=== PATIENT | female | born 1955 | race Caucasian/White ===

== ENCOUNTER 2024-09-13 12:51 | Day surgery (SDC) | payer MEDICARE ==
[2024-09-11 09:36] VITALS: BMI 41.1
[2024-09-13] MEDS: IV FLUID CONTINUATION 1,000 ML IV ONE (12:27)
[~2024-09-13 12:51] MED LIST: TRANEXAMIC 1,000 MG/100ML-NACL 1,000 MG in SALINE 1 100ML.BAG IV PRN; TRANEXAMIC 1,000 MG/100ML-NACL 1,000 MG in SALINE 1 100ML.BAG IVPB PRN
[2024-09-13] MEDS: oxyCODONE ER 10 MG TAB.ER.12H PO PRN (13:20)
[2024-09-13] MEDS: ACETAMINOPHEN TAB 500 MG TAB PO PRN (13:21)
[2024-09-13] MEDS: DOCUSATE 100 MG CAP PO PRN (13:21)
[2024-09-13] MEDS: LACTATED RINGERS 1,000 ML IV SCH (13:24)
[2024-09-13] MEDS: FAMOTIDINE 20 MG/2 ML VIAL IVP PRN (13:28)
[2024-09-13] MEDS: DEXAMETHASONE SOD PHOSPHATE 10 MG/ML 1 ML VIAL IV PRN (13:28)
[2024-09-13] MEDS: KETOROLAC 15 MG/ML 1 ML VIAL IVP PRN (13:28)
[2024-09-13] MEDS: ONDANSETRON 4 MG/2 ML VIAL IVP PRN (13:29)
[2024-09-13] MEDS: MIDAZOLAM 2 MG/2 ML VIAL IV ONE (14:10)
[2024-09-13] MEDS: fentaNYL (PF) 50 MCG/ML 2 ML AMP IVP PRN (14:13)
[2024-09-13] MEDS ORDERED: GLYCOPYRROLATE 0.2 MG/ML 2 ML VIAL ONE (14:25)
[2024-09-13] MEDS ORDERED: ROCURONIUM 10 MG/ML (5 ML VIAL) IV ONE (14:25)
[2024-09-13] MEDS ORDERED: LIDOCAINE 1% INJ 10MG/ML (20 ML MDV) ONE (14:25)
[2024-09-13] MEDS ORDERED: PROPOFOL 10 MG/ML 20 ML VIAL IV ONE (14:25)
[2024-09-13] MEDS ORDERED: fentaNYL (PF) 50 MCG/ML 2 ML AMP ONE (14:25)
[2024-09-13] MEDS ORDERED: ROPIVACAINE 5 MG/ML 30 ML VIAL ONE (14:25)
[2024-09-13] MEDS ORDERED: SUCCINYLCHOLINE CHLORIDE 200 MG/10 ML VIAL IV ONE (14:25)
[2024-09-13] MEDS ORDERED: NEOSTIGMINE 1 MG/ML 10 ML VIAL ONE (14:25)
[2024-09-13] MEDS ORDERED: TRANEXAMIC 1,000 MG/100ML-NACL PREMIX BAG ONE (14:25)
[2024-09-13] MEDS: ROPIVACAINE/EPI/CLONIDINE/KET 50 ML SYRINGE MISCELLANE PRN (15:11)
[2024-09-13] MEDS: VANCOMYCIN 1,000 MG VIAL MISCELLANE ONE (15:14)
--- NOTE | 2024-09-13 16:15 | P.ANPRN ---
Procedure Note - Anesthesia - Nerve Block Performed Right Adductor Canal Single Time Out Performed: Yes (1403) Date of Procedure: 09/13/24 Procedure Start Time: 14:04 Procedure Stop Time: 14:06 Location of Patient: PreOp Indication: Acute Post-Operative Pain, Requested by Surgeon Specifically requested for management of pain by DrSwapnil: Levy Diaz Sedation Type: Sedate with meaningful contact maintained Preparation: Sterile Prep Position: Supine Catheter: None Needle Types: Pajunk Needle Gauge: 21 Ultrasound used to visualize needle placement: Yes Ultrasound used to observe medication spread: Yes Injectate: 0.5% Ropivacaine (see comment for volume) (20cc) Blood Aspirated: No Pain Paresthesia on Injection Noted: No Resistance on Injection: Normal Image Stored and Saved: Yes Events: Uneventful and Well Tolerated
--- NOTE | 2024-09-13 16:15 | P.ANPRN ---
Procedure Note - Anesthesia - Nerve Block Performed Left iPack Single Time Out Performed: Yes (9303) Date of Procedure: 09/13/24 Procedure Start Time: 14:07 Procedure Stop Time: 14:09 Indication: Acute Post-Operative Pain, Requested by Surgeon Specifically requested for management of pain by DrSwapnil: Levy Diaz Sedation Type: Sedate with meaningful contact maintained Preparation: Sterile Prep Position: Supine Catheter: None Needle Types: Pajunk Needle Gauge: 21 Ultrasound used to visualize needle placement: Yes Ultrasound used to observe medication spread: Yes Injectate: 0.5% Ropivacaine (see comment for volume) (20cc) Blood Aspirated: No Pain Paresthesia on Injection Noted: No Resistance on Injection: Normal Image Stored and Saved: Yes Events: Uneventful and Well Tolerated
--- NOTE | 2024-09-13 16:23 | P.OP ---
Date of Procedure: 09/13/24 Preoperative Diagnosis: 1. severe left knee osteoarthritis 2. BMI 41.8 3. Chronic lower extremity swelling and mild chronic cellulitis Postoperative Diagnosis: Same Procedure(s) Performed: 1. Left total knee arthroplasty 2. Computer assisted musculoskeletal navigation using CT/MRI images Implants: 1. [place] [employer] CR Femur Size #3 2. [employer] [place] Tibial Base Size #2 3. [place] [employer] CS poly Size #2, 9-mm 4. [employer] all poly patella, Size #29 Anesthesia: MANASAA, regional Surgeon: Levy Diaz Aircraft Maintenance Director #1: Sheldon Frausto Estimated Blood Loss (ml): 100 IV fluids (ml): 800 Pathology: none sent Condition: stable Disposition: PACU Indications for Procedure: I met with the patient preoperatively in the office setting and discussed treatment of their symptomatic knee arthritis. They failed a long course of nonsurgical treatment and elected to proceed with an elective total knee replacement. I discussed the potential risks and complications at length and gave them ample time to ask questions. Risks discussed included: risks from anesthesia, superficial site surgical infection, acute and/or chronic periprosthetic joint infection, delayed wound healing, drainage, wound necrosis, instability, stiffness, stiffness requiring manipulation and/or revision surgery, damage to local blood vessels or nerves, aseptic loosening of the implants, extensor mechanism issues including disruption, patellar maltracking, avascular necrosis etc., continued or worsened knee pain, generalized dissatisfaction with surgical outcome, need for revision surgery, an inability to regain preinjury level of function, DVT, PE, other medical complications, and possibly loss of life or limb. The patient voiced their understanding that while these are the most common complications other less common complications are possible. They provided both their verbal and written consent to go forward with surgery. Description of Procedure: The patient was identified in preoperative holding and the correct operative extremity was verified and marked with a marker. I reviewed the consent form with the patient at length. All of their questions were answered. The patient was given a block by anesthesia. They were then brought back to the operating room. They were transferred onto the operating room table where a general anesthetic, preoperative antibiotics, and tranexamic acid were administered by anesthesia. A tourniquet was applied to the proximal aspect of the operative extremity. The contralateral extremity was padded under the heel and secured to the operating room table with a nonsterile blue towel and tape. The ipsilateral arm was carefully draped across the patient's chest and secured with a pillow and foam. A post was applied over the lateral aspect of the ipsilateral thigh and a bolster was placed under the ipsilateral foot. I verified that the operative extremity was stable and the knee was flexed to 90. The operative extremity was then placed in a leg suárez, nonsterile drapes were applied, and the extremity was prepped and draped sterilely in the standard sterile fashion. Prior to starting surgery timeout was performed identifying the correct patient, operative extremity, and procedure. The leg was then elevated, exsanguinated with an Esmarch bandage, and the tourniquet was inflated. An anterior midline incision was made sharply with a scalpel. Once I had dissected deep to the superficial fascial layer medial and lateral flaps were elevated. A medial parapatellar arthrotomy was created. Upon opening the knee joint there were diffuse arthritic changes in all 3 compartments. The anterior horn of the medial meniscus were sharply released and a medial release was performed around the posterior medial corner of the knee to facilitate retractor placement. The fat pad was excised with electrocautery. The patella was found to be severely arthritic and a provisional cut was made with a sagittal saw to facilitate mobilization of the extensor mechanism during the procedure. Remnants of the ACL and PCL were then excised from the notch. 4 mm pins were then placed within the incision in the medial distal femur and proximal tibia. Arrays were applied to the pins and I verified they were completely tightened. The knee was then registered with the Inmoo robot and manipulations in implant p osition were made to balance the knee and opitmize implant position. Using the Eb robotic saw all cuts were made in accordance with our plan. After all bony fragments had been removed the cuts were verified with the planar probe. The tibia was then subluxed forward and sized. The knee was brought into flexion and a lamina freight car cleaner was placed to allow removal of the meniscal remnants both medially and laterally as well as posterior osteophytes. Local anesthetic was then infiltrated around the joint capsule. Trial implants were then placed within the knee. Range of motion and collateral ligament tension was then evaluated. Adjustments in implant size and position were then made accordingly. Once the knee was felt to be appropriately balanced the Eb pins were removed. The patella was then recut, sized, and punched. A trial patellar button was then placed. With the trial components in place, the patella tracked midline. The femur was then drilled and the trial component removed. The trial tibial component was then appropriately rotated, pinned, and prepared for the keel. All trial components were then removed from the knee. The knee was thoroughly irrigated with pulsatile lavage. Cement with antibiotics was prepared via vacuum mixing in a bowl on the back table. I then hand pressurized cement into the femur and tibia and placed the implants beginning with the tibial base tray and poly liner, femoral component, and finally the patellar button. All extruded cement was removed including from the pin sites. Once the cement had hardened the knee was evaluated one final time with the final polyethylene liner in place. The knee had full extension and flexion and felt stable to varus and valgus stress throughout the arc of motion. The tourniquet was released and with the tourniquet down the patella tracked midline. All bleeders were controlled with electrocautery. The knee was then soaked for 3 minutes with a dilute Betadine soak. The knee was thoroughly irrigated using 3 L of sterile saline and pulsatile lavage. 2 grams of vancomycin powder was placed in the wound. The extensor mechanism was then reapproximated using pop off Vicryl sutures followed by a running barbed suture. The knee was then closed in layers with a 0 strata fix for the deep fascial layer, 2-0 strata fix for the superficial subcutaneous layer and Monocryl and Steri-Strips for the skin. A sterile dressing was applied. I verified that all instrument, sponge, and sharp counts were correct. The patient was then transferred off the operating room table, extubated, and brought to recovery having tolerated the procedure well. Sheldon Frausto PA-C was required as a skilled workforce development assistant for patient positioning, draping, exposure, retraction, closure of wound and application of dressing PLAN: The patient can weight-bear as tolerated on the operative extremity. DVT prophylaxis with aspirin 81 mg twice a day based on preoperative risk stratification. Internal medicine for perioperative medical management. 2 doses of post-operative antibiotics. Physical therapy for gait training. Follow-up in the office in 2 weeks for wound check and x-rays of the knee including an AP and lateral.
[2024-09-13] MEDS ORDERED: MAGNESIUM HYDROXIDE 2,400 MG/30 ML CUP PO PRN (16:47)
[2024-09-13] MEDS ORDERED: HYDROmorphone 0.5 MG/0.5 ML SYRINGE IVP PRN ×2 (16:47)
[2024-09-13] MEDS ORDERED: ACETAMINOPHEN TAB 325 MG TAB PO PRN (16:47)
[2024-09-13] MEDS ORDERED: NA PHOS,M-B/NA PHOS,DI-BA 133 ML ENEMA RECTAL PRN (16:47)
[2024-09-13] MEDS ORDERED: hydrOXYzine pamoate 25 MG CAP PO PRN (16:47)
[2024-09-13] MEDS ORDERED: bisacodyL 10 MG SUPP RECTAL PRN (16:47)
[2024-09-13] MEDS ORDERED: HYDROcodone/APAP 10-325MG 1 EACH TAB PO PRN (16:47)
[2024-09-13] MEDS ORDERED: NALOXONE 0.4 MG/ML 1 ML VIAL IV PRN (16:47)
[2024-09-13] MEDS ORDERED: ONDANSETRON 4 MG/2 ML VIAL IVP PRN (16:47)
--- NOTE | 2024-09-13 18:04 | XR ---
EXAMINATION TYPE: XR knee limited LT DATE OF EXAM: 09/13/2024 5:21 PM COMPARISON: None CLINICAL INDICATION: Female, 69 years old with history of Evaluation for Postop abnormality and align ment; [facility] TECHNIQUE: XR knee limited LT 2 views submitted. FINDINGS: Status post total knee arthroplasty changes with hardware in appropriate alignment and in tact. No evidence of fracture. Subcutaneous lucencies and lucencies within the joint consistent with surgical changes. IMPRESSION: Status post total knee arthroplasty changes with hardware intact and appropriate alignment. No fractu res identified. [facility], , 09/13/2024 6:02 PM
[2024-09-13] MEDS: HYDROcodone/APAP 5-325MG 1 EACH TAB PO PRN (18:56)
[2024-09-13] MEDS: SODIUM CHLORIDE 0.9% 1,000 ML IV SCH (18:58)
--- NOTE | 2024-09-13 21:10 | P.CONS ---
History of Present Illness - Reason for Consult Consult date: 09/13/24 Medical management - History of Present Illness History of present illness; 69-year-old female with PMH of hypertension and osteoarthritis who presented for elective total left knee arthroplasty. Patient required surgery due to longstanding osteoarthritis of the left knee. Patient is now postop with no known surgical complications. Patient is sitting up in bed resting with no complaints of pain. Patient reports absence of fever, chills, weight loss, chest pain, palpitations, diaphoresis, dyspnea, cough, nausea, vomiting, constipation, diarrhea, abdominal pain, weakness, myalgia, dizziness, and dysuria. Internal medicine was consulted for medical management. Labs: None currently ordered Imaging: Left knee x-ray showed status post total knee arthroplasty changes with hardware intact and appropriate alignment. No fractures identified. REVIEW OF SYSTEMS: All systems reviewed, pertinent positives and negatives noted in HPI. All other symptoms are negative. PHYSICAL EXAMINATION: Vitals reviewed GENERAL: No acute distress. Well developed, well nourished. HEENT: Pupils are round and equally reacting to light. EOMI. No scleral icterus. Normocephalic, atraumatic. No pharyngeal erythema. No thyromegaly. CARDIOVASCULAR: S1 and S2 present. No murmurs, rubs, or gallops. PULMONARY: Chest is clear to auscultation, no wheezing, rhonchi, or crackles. ABDOMEN: Soft, nontender, nondistended, normoactive bowel sounds. No palpable organomegaly. MUSCULOSKELETAL: No apparent joint swelling and deformities. EXTREMITIES: No apparent cyanosis, clubbing, or pedal edema. NEUROLOGICAL: The patient is alert and oriented x3, Gross neurological examination did not reveal any focal deficits. 5/5 strength bilateral UE and LE. SKIN: No apparent rashes. Left knee surgical site appreciated with bandaging covering incision, no surrounding erythema nor discharge appreciated. Assessment and plan 69-year-old female with PMH of hypertension and osteoarthritis who presented for elective total left knee arthroplasty. Internal medicine consulted for postoperative medical management. Chronic Medical Conditions #Essential hypertension - Resume home Lisinopril 30 mg and hydrochlorathine 12.5 mg p.o. every morning # Mood disorder - Resume home amitriptyline 25 mg p.o. at bedtime #History of left leg spasm -Continue home tizanidine 4 mg p.o. at bedtime and pramipexole 1 mg p.o. at bedtime # Left total knee arthroplasty -Pain management and DVT prophylaxis per primary surgical team F: IV LR 20 mL/hr E: Replete as needed N: Regular diet DVT ppx: per primary surgical team Code status: Full code Patient is stable from medical stand point Follow up CBC and CMP in AM I have seen and evaluated the patient today. I Discussed the case with the resident and agree with the resident's findings I edited the assessment and plan as necessary as documented in the resident's note. Past Medical History Past Medical History: Hypertension, Osteoarthritis (OA) Additional Past Medical History / Comment(s): "Possible sleep apnea." Restless leg syndrome. "Might have had a stroke behind left eye." Poor vision rt eye. History of Any Multi-Drug Resistant Organisms: None Reported Past Surgical History: Appendectomy, Hysterectomy, Orthopedic Surgery Additional Past Surgical History / Comment(s): Meniscus removal lt knee, Tendon release lt wrist, Colonoscopy, bx lt buddhism area, Bone marrow donor. Past Anesthesia/Blood Transfusion Reactions: No Reported Reaction Additional Past Anesthesia/Blood Transfusion Reaction / Comm: No hx of blood transfusion to date. Smoking Status: Never smoker, Vaper - Past Family History Sister(s) Family Medical History: Cancer Additional Family Medical History / Comment(s): Leukemia Father Family Medical History: Cancer Additional Family Medical History / Comment(s): Colon cancer. Medications and Allergies Home Medications Medication Instructions Recorded Confirmed Type Amitriptyline HCl [Elavil] 25 mg PO HS 09/11/24 09/13/24 History Gabapentin 600 mg PO TID 09/11/24 09/11/24 History Hydrochlorathine(Unknown Dose) 12.5 mg PO QAM 09/11/24 09/13/24 History Magnesium(Unknown Dose) 1 dose PO HS 09/11/24 09/13/24 History Meloxicam [Mobic] 15 mg PO QAM 09/11/24 09/11/24 History Potassium(Unknown Dose) 1 dose PO QAM 09/11/24 History Pramipexole Di-HCl [Pramipexole 1 mg PO HS 09/11/24 09/13/24 History Dihydrochloride] Preservision(Unknown Dose) 1 cap PO BID 09/11/24 09/11/24 History lisinopriL [Zestril] 30 mg PO QAM 09/11/24 09/11/24 History tiZANidine [Zanaflex] 4 mg PO HS 09/11/24 09/13/24 History Aspirin 81 mg PO BID #60 tab 09/13/24 Rx HYDROcodone/APAP 5-325MG [[place] 5] 1 - 2 each PO Q6HR PRN #56 tab 09/13/24 Rx Omeprazole 20 mg PO DAILY #30 tab 09/13/24 Rx Ondansetron [Zofran] 4 mg PO Q6HR PRN #30 tab 09/13/24 Rx Sennosides-Docusate Sodium 1 tab PO BID PRN #60 tablet 09/13/24 Rx [Senokot-S] Allergies Allergy/AdvReac Type Severity Reaction Status Date / Time No Known Allergies Allergy Verified 09/13/24 13:03 Physical Exam Vitals: Vital Signs Temp Pulse Resp BP Pulse Ox 09/13/24 18:14 62 16 166/83 92 L 09/13/24 17:59 65 16 159/63 94 L 09/13/24 17:44 63 16 155/88 92 L 09/13/24 17:29 76 16 152/80 94 L 09/13/24 17:14 70 16 158/83 94 L 09/13/24 16:59 74 16 156/71 100 09/13/24 16:44 97 F L 100 16 160/79 97 09/13/24 14:14 57 L 16 135/58 98 09/13/24 13:13 97.6 F 74 20 186/86 99 Intake and Output 09/13/24 09/13/24 09/13/24 06:59 14:59 22:59 Intake Total 850 125 Output Total 100 Balance 850 25 Intake: IV 850 125 Output: Estimated Blood Loss 100 Other: Weight 110.4 kg
[2024-09-13] MEDS: ASPIRIN 81 MG PO SCH (22:03)
[2024-09-13] MEDS: SENNOSIDES-DOCUSATE SODIUM 1 EACH TAB PO SCH (22:03)
[2024-09-13] MEDS: GABAPENTIN 300 MG CAP PO SCH (22:03)
[2024-09-13] MEDS: HYDROmorphone 0.5 MG/0.5 ML SYRINGE IVP PRN (22:04)
[2024-09-14 07:32] LABS: Basophils % (A) 0 %; Eosinophils % (A) 0 %; HCT 34.8 % (34.0-46.0); Lymphocytes # (A) 1.4 k/uL (1.0-4.8); Lymphocytes % (A) 10 %; MCH 28.7 pg (25.0-35.0); MCHC 31.6 g/dL (31.0-37.0); MCV 90.8 fL (80.0-100.0); Monocytes # (A) 0.8 k/uL (0-1.0); Monocytes % (A) 5 %; Neutrophils # (A) 11.8 k/uL (1.3-7.7); Neutrophils % (A) 84 %; Platelet Count 205 k/uL (150-450); RBC 3.83 m/uL (3.80-5.40); RDW 14.5 % (11.5-15.5)
[2024-09-14 07:59] LABS: ALT 74 U/L (4-34); AST 56 U/L (14-36); African American GFR (CKD) 89 (>60 ml/min/1.73 sqM); Albumin 3.4 g/dL (3.5-5.0); Albumin/Globulin Ratio 1.5; Alkaline Phosphatase 154 U/L (38-126); Anion Gap 5 mmol/L; Blood Urea Nitrogen 28 mg/dL (7-17); Calcium 8.6 mg/dL (8.4-10.2); Carbon Dioxide 26 mmol/L (22-30); Chloride 104 mmol/L (98-107); Globulin 2.2 g/dL; Glucose 130 mg/dL (74-99); Non-African American GFR(CKD) 77 (>60 ml/min/1.73 sqM); Potassium 4.7 mmol/L (3.5-5.1); Sodium 135 mmol/L (137-145); Total Bilirubin 0.3 mg/dL (0.2-1.3); Total Protein 5.6 g/dL (6.3-8.2)
--- NOTE | 2024-09-14 08:36 | P.DS ---
Providers Date of admission: 09/13/2024 Attending physician: Levy Diaz Consults: 09/13/24 16:47 Consult Physician Routine Consulting Provider: Janee Kohler Consult Reason/Comments: Postop total knee arthroplasty medical management Do you want consulting provider notified?: Yes Primary care physician: Janee Kohler MD Hospital Course: The patient is a very pleasant 69-year-old female who underwent uncomplicated left total knee replacement yesterday. Following an uncomplicated surgery she was transferred to the orthopedic floor. She was transitioned from IV to oral pain medication. She was seen by internal medicine. I have evaluated the patient on postoperative day #1 and she was doing well. She had minimal pain in her knee. On exam the dressing was intact with no drainage or strike through. She had moderate swelling throughout her thigh and calf but both are soft and minimally tender. Femoral nerve function was intact. She was able to actively plantarflex and dorsiflex her ankle and her toes. She worked with physical therapy and did well. She was ultimately cleared for discharge home. Patient Condition at Discharge: Good Plan - Discharge Summary Discharge Rx Participant: No New Discharge Prescriptions: New HYDROcodone/APAP 5-325MG [[place] 5] 1 - 2 each PO Q6HR PRN #56 tab PRN Reason: Pain Ondansetron [Zofran] 4 mg PO Q6HR PRN #30 tab PRN Reason: Nausea Aspirin 81 mg PO BID #60 tab Omeprazole 20 mg PO DAILY #30 tab Sennosides-Docusate Sodium [Senokot-S] 1 tab PO BID PRN #60 tablet PRN Reason: Constipation No Action Magnesium(Unknown Dose) 1 dose PO HS Hydrochlorathine(Unknown Dose) 12.5 mg PO QAM tiZANidine [Zanaflex] 4 mg PO HS Potassium(Unknown Dose) 1 dose PO QAM lisinopriL [Zestril] 30 mg PO QAM Preservision(Unknown Dose) 1 cap PO BID Pramipexole Di-HCl [Pramipexole Dihydrochloride] 1 mg PO HS Meloxicam [Mobic] 15 mg PO QAM Gabapentin 600 mg PO TID Amitriptyline HCl [Elavil] 25 mg PO HS Discharge Medication List Amitriptyline HCl [Elavil] 25 mg PO HS 09/11/24 [History] Gabapentin 600 mg PO TID 09/11/24 [History] Hydrochlorathine(Unknown Dose) 12.5 mg PO QAM 09/11/24 [History] Magnesium(Unknown Dose) 1 dose PO HS 09/11/24 [History] Meloxicam [Mobic] 15 mg PO QAM 09/11/24 [History] Potassium(Unknown Dose) 1 dose PO QAM 09/11/24 [History] Pramipexole Di-HCl [Pramipexole Dihydrochloride] 1 mg PO HS 09/11/24 [History] Preservision(Unknown Dose) 1 cap PO BID 09/11/24 [History] lisinopriL [Zestril] 30 mg PO QAM 09/11/24 [History] tiZANidine [Zanaflex] 4 mg PO HS 09/11/24 [History] Aspirin 81 mg PO BID #60 tab 09/13/24 [Rx] HYDROcodone/APAP 5-325MG [[place] 5] 1 - 2 each PO Q6HR PRN #56 tab 09/13/24 [Rx] Omeprazole 20 mg PO DAILY #30 tab 09/13/24 [Rx] Ondansetron [Zofran] 4 mg PO Q6HR PRN #30 tab 09/13/24 [Rx] Sennosides-Docusate Sodium [Senokot-S] 1 tab PO BID PRN #60 tablet 09/13/24 [Rx] Follow up Appointment(s)/Referral(s): Levy Diaz MD [Medical Doctor] - 2 Weeks Activity/Diet/Wound Care/Special Instructions: 1. Weight-bear as tolerated on your operative extremity unless instructed otherwise. Use a walker or other assistive device to ambulate. 2. Leave surgical dressing in place. If your dressing becomes saturated with blood, there is drainage, or the dressing becomes loose please contact the office. 3. It is okay to shower with your surgical dressing, but do not submerge in water (no hot tubs, bath's, swimming etc.) 4. Make sure to take her blood clot prevention medication as prescribed (aspirin, Eliquis, Xarelto, and Plavix are commonly prescribed medications for blood clot prevention) 5. While taking [place] or Percocet for pain make sure you're taking a stool softener (Colace) and drink lots of water. 6. Keep all follow-up appointments as scheduled. You will usually be seen in 1-2 weeks following surgery. 7. Please contact the office with any questions or concerns [phone] Discharge Disposition: HOME WITH HOME HEALTH SERVICES
[2024-09-14] MEDS: hydroCHLOROthiazide 12.5 MG CAP PO SCH (09:40)
[2024-09-14] MEDS: lisinopriL 10 MG TAB PO SCH (09:41)
[2024-09-14 10:11] VITALS: BP 112/69; PULSE 60; RESP 18; TEMP 97.8
== END 2024-09-14 12:06 | disposition home health service (06) ==
LOC: OR 12:51 → 4SSUR 16:42 → OR 09-14 12:06
PROVIDERS: ATTEND Orthopaedic Surgery
DX: M17.12 Unilateral primary osteoarthritis, left knee (principal); L03.116 Cellulitis of left lower limb; G89.18 Other acute postprocedural pain; I10 Essential (primary) hypertension; E78.5 Hyperlipidemia, unspecified; G47.33 Obstructive sleep apnea (adult) (pediatric); M79.7 Fibromyalgia; G25.81 Restless legs syndrome; K21.9 Gastro-esophageal reflux disease without esophagitis; F39 Unspecified mood [affective] disorder; I89.0 Lymphedema, not elsewhere classified; M62.838 Other muscle spasm; H35.30 Unspecified macular degeneration; Z79.82 Long term (current) use of aspirin; Z79.1 Long term (current) use of non-steroidal anti-inflammatories (NSAID); Z79.899 Other long term (current) drug therapy; Z88.8 Allergy status to other drugs, medicaments and biological substances
CPT/HCPCS: 0055T; 27447; S2900; 64447; 64999; 80053; 85025

== ENCOUNTER 2024-09-22 22:23 | Inpatient (IN) | payer MEDICARE ==
--- NOTE | 2024-09-22 23:22 | ED ---
General Adult HPI - General Chief complaint: Recheck/Abnormal Lab/Rx Stated complaint: Abd pain Time Seen by Provider: 09/22/24 22:29 Source: patient, EMS Mode of arrival: EMS Limitations: no limitations - History of Present Illness Initial comments: Patient is a 69-year-old woman who is transferred here from [facility]. The patient had gone to the emergency department there today at approximately 3:30 PM. The patient was complaining of abdominal pain and distention. She states that it was diffuse pain it seems to migrate around the abdomen. She associated that with not having had a bowel movements since prior to her left knee surgery, probably 3 to 4 days with no bowel movement. The patient denied fever or chills, no vomiting, no noted change in urination. When I reviewed the patient she had not noted worsening or relieving factors. Pain moderate to severe at times. Transferring facility the patient had workup including lab tests, which revealed elevated BUN and creatinine above patient's baseline. The BUN 66, creatinine 2.47. The patient had leukocytosis with a white blood cell count 30.69. Hemoglobin 11.7 platelets 93. Remainder of chemistries largely unremarkable other than alk phos 292. Bilirubin 1.74. Lactic acid was 2.0. The patient did have CT scan of the abdomen and pelvis which revealed presence of diffuse constipation and nonspecific colitis at the splenic flexure. The urinalysis was negative. The patient had duplex Doppler of the left leg which was negative for DVT. Onset/Timin -: days(s) Location: abdomen Radiation: non-radiation Quality: aching, other Consistency: constant Improves with: none Worsens with: none Associated Symptoms: other (Constipation) Treatments Prior to Arrival: none - Related Data Home Medications Medication Instructions Recorded Confirmed Amitriptyline HCl [Elavil] 25 mg PO HS 09/11/24 09/23/24 Gabapentin 600 mg PO TID 09/11/24 09/23/24 Magnesium(Unknown Dose) 1 tab PO HS 09/11/24 09/23/24 Meloxicam [Mobic] 15 mg PO DAILY 09/11/24 09/23/24 Potassium(Unknown Dose) 1 tab PO DAILY 09/11/24 09/23/24 lisinopriL [Zestril] 30 mg PO DAILY 09/11/24 09/23/24 tiZANidine [Zanaflex] 4 mg PO HS 09/11/24 09/23/24 Pramipexole [Mirapex] 1 mg PO HS 09/23/24 09/23/24 Vit C/E/Zn/Coppr/Lutein/Zeaxan 1 cap PO BID 09/23/24 09/23/24 [Preservision Areds 2 Softgel] Previous Rx's Medication Instructions Recorded Aspirin 81 mg PO BID #60 tab 09/14/24 Diclofenac Sodium [Voltaren] 75 mg PO BID #60 tab 09/14/24 Docusate [Colace] 100 mg PO BID #60 capsule 09/14/24 HYDROcodone/APAP 5-325MG [[place] 1 - 2 tab PO Q6HR PRN #56 tab 09/14/24 5-325] Omeprazole 40 mg PO DAILY #30 cap 09/14/24 Ondansetron [Zofran] 4 mg PO Q8HR PRN #20 tab 09/14/24 L.acidoph,Paracasei, B.lactis 1 each PO DAILY 20 Days #20 capsule 09/27/24 [Probiotic] cefuroxime axetiL [Ceftin] 500 mg PO BID 10 Days #20 tab 09/27/24 metroNIDAZOLE [Flagyl] 500 mg PO TID 10 Days #30 tab 09/27/24 polyethylene glycoL 3350 [Miralax] 17 gm PO HS 30 Days #30 packet 09/27/24 Allergies Allergy/AdvReac Type Severity Reaction Status Date / Time No Known Allergies Allergy Verified 09/22/24 22:40 Review of Systems ROS Statement: Those systems with pertinent positive or pertinent negative responses have been documented in the HPI. ROS Other: All systems not noted in ROS Statement are negative. Constitutional: Denies: fever, chills, weakness Respiratory: Denies: cough, dyspnea Cardiovascular: Denies: chest pain, palpitations, edema Gastrointestinal: Reports: abdominal pain, constipation. Denies: nausea, vomiting, diarrhea, hematemesis, melena, hematochezia Genitourinary: Denies: dysuria, frequency, hematuria Musculoskeletal: Reports: arthralgia (Left knee postoperative pain). Denies: back pain Skin: Denies: rash Neurological: Denies: headache, weakness, numbness, paresthesias, confusion Hematological/Lymphatic: Denies: easy bleeding Past Medical History Past Medical History: Hypertension, Osteoarthritis (OA) Additional Past Medical History / Comment(s): "Possible sleep apnea." Restless leg syndrome. "Might have had a stroke behind left eye." Poor vision rt eye. History of Any Multi-Drug Resistant Organisms: None Reported Past Surgical History: Appendectomy, Hysterectomy, Orthopedic Surgery Additional Past Surgical History / Comment(s): Meniscus removal lt knee, Tendon release lt wrist, Colonoscopy, bx lt [place] area, Bone marrow donor. Past Anesthesia/Blood Transfusion Reactions: No Reported Reaction Additional Past Anesthesia/Blood Transfusion Reaction / Comment(s): No hx of blood transfusion to date. Past Psychological History: No Psychological Hx Reported Smoking Status: Never smoker, Vaper Past Alcohol Use History: Rare Past Drug Use History: Marijuana - Past Family History Sister(s) Family Medical History: Cancer Additional Family Medical History / Comment(s): Leukemia Father Family Medical History: Cancer Additional Family Medical History / Comment(s): Colon cancer. General Exam Limitations: no limitations General appearance: alert, in no apparent distress Head exam: Present: atraumatic, normocephalic Eye exam: Present: normal appearance. Absent: scleral icterus, conjunctival injection ENT exam: Present: normal oropharynx Neck exam: Present: normal inspection, full ROM Respiratory exam: Present: normal lung sounds bilaterally. Absent: respiratory distress, wheezes, rales, rhonchi, stridor, accessory muscle use Cardiovascular Exam: Present: regular rate, normal rhythm, normal heart sounds. Absent: systolic murmur, diastolic murmur, rubs, gallop GI/Abdominal exam: Present: soft, distended. Absent: tenderness, guarding, rebound, rigid, mass, pulsatile mass, hernia Extremities exam: Present: other (Left knee has surgical dressing which is clean dry and intact. There is some ecchymosis. There is no abnormal erythema, warmth or any drainage. There is swelling and some mild tenderness.) Back exam: Present: normal inspection. Absent: tenderness, CVA tenderness (R), CVA tenderness (L) Neurological exam: Present: alert, oriented X3. Absent: motor sensory deficit Skin exam: Present: warm, dry, intact, other (Postsurgical ecchymosis present). Absent: rash Course Vital Signs 09/22/24 09/22/24 09/23/24 22:25 23:57 02:02 Temperature 98.5 F Pulse Rate 89 83 85 Respiratory 16 17 18 Rate Blood Pressure 100/62 105/58 100/73 O2 Sat by Pulse 95 97 98 Oximetry 09/23/24 02:17 Temperature 98.2 F Pulse Rate Respiratory Rate Blood Pressure O2 Sat by Pulse Oximetry Medical Decision Making - Medical Decision Making Was pt. sent in by a medical professional or institution (, PA, [employer], urgent care, hospital, or long-term...) When possible be specific @ -Patient is sent here as a transfer from outside hospital to have further evaluation and treatment Did you speak to anyone other than the patient for history (EMS, parent, family, police, friend...)? What history was obtained from this source @ -[No] Did you review nursing and triage notes (agree or disagree)? Why? @ -[I reviewed and agree with nursing and triage notes] Were old charts reviewed (outside hosp., previous admission, EMS record, old EKG, old radiological studies, urgent care reports/EKG's, long-term records)? Report findings @ -The transfer records were reviewed] Differential Diagnosis (chest pain, altered mental status, abdominal pain women, abdominal pain men, vaginal bleeding, weakness, fever, dyspnea, syncope, headache, dizziness, GI bleed, back pain, seizure, CVA, palpatations, mental health, musculoskeletal)? @ -[Differential Abdominal Pain Women: Appendicitis, Cholecystitis, diverticulosis, ischemic bowel, pancreatitis, hepatitis, UTI, gastroenteritis, AAA, incarcerated hernia, bowel obstruction, constipation, inflammatory bowel, hepatitis, peptic ulcer disease, splenic infarction, perforated viscus, vulvitis, ovarian torsion, PID, kidney stone, placenta abruption, this is not meant to be an all-inclusive list EKG interpreted by me (3pts min.). @ -[As above] X-rays interpreted by me (1pt min.). @ -[None done] CT interpreted by me (1pt min.). @ -[None done] U/S interpreted by me (1pt. min.). @ -[None done] What testing was considered but not performed or refused? (CT, X-rays, U/S, labs)? Why? @ -[None] What meds were considered but not given or refused? Why? @ -[None] Did you discuss the management of the patient with other professionals (professionals i.e. , PA, [employer], lab, RT, psych nurse, protective services social worker, relations liaison, teacher, chief business officer, special education case manager)? Give summary @ -[Case discussed with admitting physician Was smoking cessation discussed for >3mins.? @ -[No] Was critical care preformed (if so, how long)? @ -[No] Were there social determinants of health that impacted care today? How? (Homelessness, low income, unemployed, alcoholism, drug addiction, transportation, low edu. Level, literacy, decrease access to med. care, long-term, rehab)? @ -[No] Was there de-escalation of care discussed even if they declined (Discuss DNR or withdrawal of care, Hospice)? DNR status @ -[No] What co-morbidities impacted this encounter? (DM, HTN, Smoking, COPD, CAD, Cancer, CVA, ARF, Chemo, Hep., AIDS, mental health diagnosis, sleep apnea, morbid obesity)? @ -[None] Was patient admitted / discharged? Hospital course, mention meds given and route, prescriptions, significant lab abnormalities, going to OR and other pertinent info. @ -[Patient is 69-year-old woman who is postoperative for knee surgery. She had gone to the other facility for abdominal pain and found to have colitis with suspected ileus. Patient transferred here to have further evaluation and treatment. Undiagnosed new problem with uncertain prognosis? @ -[No] Drug Therapy requiring intensive monitoring for toxicity (Heparin, Nitro, Insulin, Cardizem)? @ -[No] Were any procedures done? @ -[No] Diagnosis/symptom? @ -[Acute abdominal pain Acute colitis Acute, or Chronic, or Acute on Chronic? @ -[Acute Uncomplicated (without systemic symptoms) or Complicated (systemic symptoms)? @ -[Uncomplicated Side effects of treatment? @ -[No] Exacerbation, Progression, or Severe Exacerbation? @ -[No] Poses a threat to life or bodily function? How? (Chest pain, USA, PR, pneumonia, PE, COPD, DKA, ARF, appy, cholecystitis, CVA, Diverticulitis, Homicidal, Suicidal, threat to staff... and all critical care pts) @ -[No] - Lab Data Result diagrams: 09/27/24 03:28 09/27/24 03:28 Disposition Clinical Impression: Colitis, Abdominal pain Disposition: ADMITTED IP TO THIS HOSP Condition: Stable Is patient prescribed a controlled substance at d/c from ED?: No
[2024-09-22] MEDS ORDERED: ONDANSETRON 4 MG/2 ML VIAL IVP PRN (23:23)
[2024-09-22] MEDS ORDERED: MORPHINE SULFATE 4 MG/ML SYRINGE IV PRN (23:23)
[2024-09-22] MEDS ORDERED: MAG HYDROX/AL HYDROX/SIMETH 30 ML CUP PO PRN (23:23)
[2024-09-22] MEDS ORDERED: NALOXONE 0.4 MG/ML 1 ML VIAL IV PRN (23:23)
[2024-09-22] MEDS: SODIUM CHLORIDE 0.9% 1,000 ML IV SCH (23:48)
[2024-09-23] MEDS: ACETAMINOPHEN TAB 325 MG TAB PO PRN (00:14)
[2024-09-23 00:57] LABS: Basophils # (A) 0.1 k/uL (0-0.2); Basophils % (A) 0 %; Eosinophils % (A) 0 %; HCT 33.4 % (34.0-46.0); HGB 10.8 gm/dL (11.4-16.0); Hypochromasia Slight; Lymphocytes # (A) 0.9 k/uL (1.0-4.8); Lymphocytes % (A) 3 %; MCH 29.3 pg (25.0-35.0); MCHC 32.3 g/dL (31.0-37.0); MCV 90.9 fL (80.0-100.0); Mean Platelet Volume 8.6; Monocytes # (A) 0.8 k/uL (0-1.0); Monocytes % (A) 3 %; Neutrophils # (A) 29.9 k/uL (1.3-7.7); Neutrophils % (A) 94 %; Platelet Count 290 k/uL (150-450); RBC 3.67 m/uL (3.80-5.40); WBC 31.8 k/uL (3.8-10.6)
[2024-09-23 01:45] LABS: ALT 61 U/L (4-34); African American GFR (CKD) 41 (>60 ml/min/1.73 sqM); Anion Gap 10 mmol/L; Blood Urea Nitrogen 62 mg/dL (7-17); Calcium 8.2 mg/dL (8.4-10.2); Carbon Dioxide 24 mmol/L (22-30); Chloride 99 mmol/L (98-107); Glucose 154 mg/dL (74-99); Non-African American GFR(CKD) 36 (>60 ml/min/1.73 sqM); Sodium 133 mmol/L (137-145); Total Bilirubin 1.6 mg/dL (0.2-1.3); Total Protein 5.4 g/dL (6.3-8.2)
[2024-09-23 01:52] LABS: Magnesium 3.8 mg/dL (1.6-2.3); Potassium 4.8 mmol/L (3.5-5.1)
[2024-09-23 01:53] LABS: AST 42 U/L (14-36); Alkaline Phosphatase 268 U/L (38-126)
--- NOTE | 2024-09-23 02:28 | XR ---
EXAM: XR Chest, 1 View CLINICAL HISTORY: ITS.REASON XR Reason: low oximetry reading prehospital TECHNIQUE: Frontal view of the chest. COMPARISON: No relevant prior studies available. FINDINGS: Lungs: LEFT lower lung consolidation, concerning for pneumonia. Pleural space: Unremarkable. No pneumothorax. Heart: Cardiomegaly. Mediastinum: Unremarkable. Normal mediastinal contour. Bones/joints: Unremarkable. No acute fracture. IMPRESSION: LEFT lower lung consolidation, concerning for pneumonia.
--- NOTE | 2024-09-23 03:42 | P.HPIM ---
History of Present Illness H&P Date: 09/23/24 Chief Complaint: Abdominal pain and distention Patient is a 69-year-old female with past medical history of hypertension, restless leg syndrome, CKD stage II, osteoarthritis s/p left total knee arthroplasty presented to the ED as a transfer from [facility] facility. She presented for abdominal pain and distention. She states that the pain started 2 days ago, it was initially in the epigastric region and now it has migrated to the lower abdomen. She reports not having a bowel movement since her left total knee arthroplasty on 09/13/2024 for osteoarthritis. Associated with that she also experienced two episodes of vomiting in the past 1 week. She denies any alleviating or precipitating factors. CT scan done at [facility] revealed presence of diffuse constipation and nonspecific colitis at the splenic flexure. Patient also had a Doppler of the left leg that was negative for DVT. Currently her abdominal pain is a 2 out of 10 severity and she also endorses mild pain at the surgical site on the left knee. Denies fever, chills, chest pain, cough, palpitations, nausea, hematuria, dysuria, hematochezia, melena, headache, slurred speech, numbness, tingling. ED documentation reviewed. In the ED patient was treated with acetaminophen 650 mg and 0.9 normal saline. Vitals on admission T 98.5 F, NE 89 bpm, RR 16, BP 100/62, O2 sat 95% on room CXR shows left lower lung consolidation, concerning for pneumonia Labs on admission show WBC 31.8, hemoglobin 10.8, sodium 133, BUN 32, creatinine 1.49, magnesium 3.8, total bilirubin 1.6, AST 42, ALT 61, ALP 268 Troponin I <0.012 Review of systems: Pertinent positives and negatives as discussed in HPI, a complete review of systems was performed and all other systems are negative. PMH: Hypertension, osteoarthritis, restless leg syndrome PSH: Appendectomy, hysterectomy, left total knee arthroplasty FMH: Leukemia Allergies: No known allergies Social history: Tobacco: Vaper Alcohol: Rarely Recreational drugs: Denies use Travel: No recent travel history Sick contacts: None Physical examination: Vital signs reviewed General: nontoxic, no distress, appears at stated age, morbidly obese Derm: warm, dry, intact Head: atraumatic, normocephalic, symmetric Eyes: EOMI, anicteric sclera Mouth: no lip lesion, mucus membranes moist Cardiovascular: S1 S2 reg, no murmur Lungs: CTA bilateral, no rhonchi, no rales, no accessory muscle use Abdominal: distended, mild diffuse tenderness to palpation, no guarding Extremities: No cyanosis, clubbing, or pedal edema, L knee dressing in place with LLE brusing with ecchymosis noted and erythema distal to the dressing, mild LLE swelling noted Neuro: Alert, Oriented, Gross neurological examination did not reveal any focal deficits. Psych: well appearing, appropriate affect Assessment/Plan: Patient is a 69-year-old female with past medical history of hypertension, restless leg syndrome, osteoarthritis s/p left total knee arthroplasty on 09/13/2024 presented to the ED at [facility] with abdominal pain and distention, she was transferred to [facility] for possible sepsis. She has been admitted for further workup and management of the same. Active: #. Abdominal pain secondary to constipation, likely due to post-surgical opiate use #. Hyperbilirubinemia #. Elevated transaminases Total bilirubin 1.6, AST 42, ALT 61, ALP 268 Continue acetaminophen 650 mg p.o. every 6 hours as needed, famotidine 20 mg p.o. twice daily, Maalox 15 mL p.o. every 6 hours as needed Judicious use of opiates due to concerns for ileus Lactulose 30 gm PO TID PRN Obtain LFTs Obtain abdominal ultrasound Monitor LFTs Consider general surgery consult if constipation persists #. Acute hypoxic respiratory failure secondary to community acquired pneumonia WBC 31.8 CXR shows left lower lung consolidation, concerning for pneumonia Continue supplemental oxygen, currently on 3L via nasal cannula Obtain respiratory panel Azithromycin 500 mg PO daily for 3 days. Initiate Ceftriaxone 2g IVPB q24h Obtain Legionella testing #. Nausea and vomiting Continue ondansetron 4 mg IVP every 8 hours as needed #. BECKY on CKD stage II, likely prerenal Creatinine 1.49 Continue 0.9 normal saline at 130 ml/hr #. Normocytic anemia, similar to baseline Monitor CBC #. Hypermagnesemia Mg 3.8 Monitor Mg levels Chronic: #. Hypertension Continue home med lisinopril 30 mg p.o. every morning and hydrochlorathine 12.5 mg PO every morning #. Neuropathy Continue home med gabapentin 600 mg p.o. 3 times daily #. Anxiety/Depression Continue home meds amitriptyline 25 mg p.o. at bedtime #. Left leg spasms Continue home med Pramipexole 1 mg p.o. at bedtime and Tizanidine 4 mg PO HS Resume home meds once confirmed by pharmacy F: 0.9 normal saline at 130 ml/hr E: Replete as required N: Clear liquid diet A: Ambulatory DVT prophylaxis: Lovenox 40 mg SQ daily and SCD GI prophylaxis: Famotidine 20 mg PO BID The patient is admitted with an anticipated more than 2 midnight stay for evaluation of abdominal pain CODE STATUS: FULL CODE Discussed with: Patient Anticipated discharge place: Home Past Medical History Past Medical History: Hypertension, Osteoarthritis (OA) Additional Past Medical History / Comment(s): "Possible sleep apnea." Restless leg syndrome. "Might have had a stroke behind left eye." Poor vision rt eye. History of Any Multi-Drug Resistant Organisms: None Reported Past Surgical History: Appendectomy, Hysterectomy, Orthopedic Surgery Additional Past Surgical History / Comment(s): Meniscus removal lt knee, Tendon release lt wrist, Colonoscopy, bx lt [place] area, Bone marrow donor. Past Anesthesia/Blood Transfusion Reactions: No Reported Reaction Additional Past Anesthesia/Blood Transfusion Reaction / Comment(s): No hx of blood transfusion to date. Past Psychological History: No Psychological Hx Reported Smoking Status: Never smoker, Vaper Past Alcohol Use History: Rare Past Drug Use History: Marijuana - Past Family History Sister(s) Family Medical History: Cancer Additional Family Medical History / Comment(s): Leukemia Father Family Medical History: Cancer Additional Family Medical History / Comment(s): Colon cancer. Medications and Allergies Home Medications Medication Instructions Recorded Confirmed Type Amitriptyline HCl [Elavil] 25 mg PO HS 09/11/24 09/13/24 History Gabapentin 600 mg PO TID 09/11/24 09/11/24 History Hydrochlorathine(Unknown Dose) 12.5 mg PO QAM 09/11/24 09/13/24 History Magnesium(Unknown Dose) 1 dose PO HS 09/11/24 09/13/24 History Meloxicam [Mobic] 15 mg PO QAM 09/11/24 09/11/24 History Potassium(Unknown Dose) 1 dose PO QAM 09/11/24 History Pramipexole Di-HCl [Pramipexole 1 mg PO HS 09/11/24 09/13/24 History Dihydrochloride] Preservision(Unknown Dose) 1 cap PO BID 09/11/24 09/11/24 History lisinopriL [Zestril] 30 mg PO QAM 09/11/24 09/11/24 History tiZANidine [Zanaflex] 4 mg PO HS 09/11/24 09/13/24 History Aspirin 81 mg PO BID #60 tab 09/14/24 Rx Diclofenac Sodium [Voltaren] 75 mg PO BID #60 tab 09/14/24 Rx Docusate [Colace] 100 mg PO BID #60 capsule 09/14/24 Rx Doxycycline Monohydrate 100 mg PO BID #30 cap 09/14/24 Rx HYDROcodone/APAP 5-325MG [[place] 1 - 2 tab PO Q6HR PRN #56 tab 09/14/24 Rx 5-325] Omeprazole 40 mg PO DAILY #30 cap 09/14/24 Rx Ondansetron [Zofran] 4 mg PO Q8HR PRN #20 tab 09/14/24 Rx Allergies Allergy/AdvReac Type Severity Reaction Status Date / Time No Known Allergies Allergy Verified 09/22/24 22:40 Physical Exam Vitals: Vital Signs Temp Pulse Resp BP Pulse Ox 09/22/24 23:57 83 17 105/58 97 09/22/24 22:25 98.5 F 89 16 100/62 95 Intake and Output 09/22/24 09/22/24 09/23/24 14:59 22:59 06:59 Other: Weight 108.862 kg Results CBC & Chem 7: 09/22/24 23:35 09/22/24 23:35
[2024-09-23] MEDS ORDERED: LACTULOSE 20 GM/30 ML CUP PO PRN (04:05)
[2024-09-23] MEDS: AZITHROMYCIN 500 MG in SODIUM CHLORIDE 0.9% 250 ML IVPB SCH (06:11)
[2024-09-23 10:01] LABS: HCT 33.1 % (37.2-46.3); HGB 10.1 g/dL (12.0-15.0); MCH 28.8 pg (27.0-32.0); MCHC 30.5 g/dL (32.0-37.0); MCV 94.3 FL (80.0-97.0); Mean Platelet Volume 11.9 FL (9.5-12.2); NRBC Per 100 WBC 0.02 X 10*3/uL (0.00-0.01); Platelet Count 273 X 10*3/uL (140-440); RBC 3.51 X 10*6/uL (4.10-5.20); RDW 16.2 % (11.5-14.5); WBC 33.38 X 10*3/uL (4.50-10.00)
[2024-09-23] MEDS: FAMOTIDINE 20 MG TAB PO SCH (10:05)
[2024-09-23] MEDS: ENOXAPARIN 40 MG/0.4 ML SYRINGE SQ SCH (10:05)
[2024-09-23 10:24] LABS: Blood Urea Nitrogen 54.9 mg/dL (9.0-27.0); Calcium 8.2 mg/dL (8.7-10.3); Chloride 100 mmol/L (96-109); Glucose 139 mg/dL (70-110); Magnesium 3.6 mg/dL (1.5-2.4); Potassium 4.3 mmol/L (3.5-5.5); Sodium 137 mmol/L (135-145)
[2024-09-23 10:25] LABS: Bilirubin, Conjugated 0.53 mg/dL (0.20-0.40); Bilirubin,Unconjugated 0.17 mg/dL (0.20-1.00); Total Bilirubin 0.7 mg/dL (0.3-1.2)
--- NOTE | 2024-09-23 14:55 | US ---
EXAMINATION TYPE: US abdomen limited DATE OF EXAM: 09/23/2024 COMPARISON: NONE CLINICAL INDICATION: Female, 69 years old with history of elevated bilirubin; Abnormal labs. Patient states her abdomen feels hard. TECHNIQUE: Grayscale and color Doppler imaging of the right upper quadrant was performed. FINDINGS: EXAM MEASUREMENTS: Liver Length: 14.0 cm Gallbladder Wall: 0.1 cm CBD: 0.3 cm Right Kidney: 9.6 x 4.3 x 5.3 cm ALLEY WORKER NOTES:Suboptimal due to patient body habitus and bowel gas Pancreas: Obscured by bowel gas Liver: Scanned through ribs Gallbladder: No stones or wall thickening Evidence for sonographic Lloyd's sign: neg CBD: wnl Right Kidney: No prominent hydronephrosis or masses seen, limited visualzation IMPRESSION: Unremarkable right upper quadrant ultrasound exam. [facility], , 09/23/2024 2:52 PM
[2024-09-23] MEDS ORDERED: HYDROcodone/APAP 5-325MG 1 EACH TAB PO PRN (17:35)
[2024-09-23] MEDS: metroNIDAZOLE 500 MG TAB PO SCH (17:41)
[2024-09-23] MEDS: GABAPENTIN 300 MG CAP PO SCH (17:41)
--- NOTE | 2024-09-23 17:46 | P.PN ---
Subjective Progress Note Date: 09/23/24 Hospital course: Patient is a very pleasant 69-year-old female with a past medical history of hypertension, GERD, stage II chronic kidney disease, restless leg syndrome, and osteoarthritis status post recent left total knee arthroplasty on 09/13/2024. She presented to our facility as a transfer from [facility] secondary to reported findings of nonspecific colitis at splenic flexure and concerns for ileus. Patient initially presented to their facility secondary to reports of abdominal pain and distention accompanied by nausea and vomiting. Upon arrival to our facility, patient underwent evaluation in the emergency department. Vital signs upon arrival to our facility show blood pressure 100/62, heart rate 89, respiratory rate 16, temp 98.5 F, and SpO2 of 95% on room air. Labs completed and reviewed. CBC showing leukocytosis with WBC count of 31.8 and hemoglobin of 10.8. BMP showing high anion gap metabolic acidosis with chloride of 100, bicarb 21, and anion gap of 16 with an acute kidney injury with BUN of 62, creatinine of 1.49, GFR of 36 with baseline creatinine of 0.79. Liver profile showing hyperbilirubinemia and transaminitis with total bili of 1.6, AST of 42, ALT of 61, and alkaline phosphatase of 268. Albumin was low at 3.0. Influenza A, influenza B, RSV, COVID, and Legionella negative. Patient admitted under services with consultation to infectious disease. Physical exam: Patient seen and fully evaluated at bedside this morning. She reports persistent abdominal distention and pain worse in epigastric region. She denies nausea or vomiting. She denies chest pain, palpitations, shortness of breath, or any other complaints at this time. Patient reported having a bowel movement this morning. Vital signs reviewed and stable. General: Nontoxic, no distress and appears stated age. Derm: Skin warm and dry, normal coloration for ethnicity. Head: Atraumatic, normocephalic and symmetric. Eyes: EOM's intact, no lid lag, and anicteric sclera Mouth: no lip lesions, mucus membranes moist Cardiovascular: regular rate and rhythm with normal S1S2, no murmur, positive posterior tibial pulses bilaterally, and cap refill < 2 seconds. Lungs: Respirations even, regular, and unlabored on room air. Lungs CTA bilaterally, no rhonchi, no rales, no wheezing, and no accessory muscle usage. Abdominal: Taut and distended with diffuse abdominal tenderness, no guarding, no appreciable organomegaly Ext: No gross muscle atrophy, no contractures and sensation intact. Patient with left lower extremity edema and bruising with postsurgical dressing/Leodan wrap in place to left knee. No erythema, drainage, or signs of infection noted. Neuro: Speech clear, face symmetrical and CN II-XII grossly intact with no noted focal neuro deficits Psych: Alert and oriented to person, place, time, and situation. Appropriate and pleasant affect. Assessment and Plan of Care: Severe leukocytosis Colitis Transaminitis and hyperbilirubinemia Constipation with concerns of postoperative ileus Left lower lobe pneumonia Acute kidney injury High anion gap metabolic acidosis -Consult placed to infectious disease secondary to severe leukocytosis with concerns of colitis and pneumonia and status post recent left total knee arthroplasty -Patient was started on IV antibiotics with azithromycin and Rocephin will add Flagyl for coverage for colitis.. -Continue gentle IV fluid hydration with 0.9% normal saline at 100 cc/h. -Will start patient on MiraLAX 17 g daily. Patient may also continue her Colace 100 mg twice daily. Monitor output. -Continue close monitoring of renal function and liver enzymes with repeat a.m. labs. -Follow-up on blood culture results. -Abdominal ultrasound was completed showing unremarkable right upper quadrant ultrasound examination. -Hold lisinopril and hydrochlorothiazide secondary to BECKY. Status post recent left total knee arthroplasty -Continue symptomatic care and pain management. -Order placed for physical therapy for evaluation and to work with patient throughout hospitalization. -Fall precautions. Hypertension -Lisinopril and hydrochlorothiazide held at this time secondary to BECKY, monitor vital signs closely. Currently blood pressures running soft. Restless leg syndrome with peripheral neuropathy -Continue Neurontin 600 mg 3 times daily, Tizanidine 4 mg nightly and Mirapex 1 mg nightly. Data and imaging reviewed: -Abdominal ultrasound was completed showing unremarkable right upper quadrant ultrasound examination. -Morning labs reviewed. CBC showing worsening leukocytosis with WBC count increasing to 33.38 and stable normocytic anemia with hemoglobin of 10.1. BMP showing high anion gap metabolic acidosis with chloride of 100, bicarb 21, and anion gap of 16. Renal function remains elevated with BUN of 54.9, creatinine of 1.5, GFR of 37. Blood glucose 139. Magnesium 3.6. Conjugated bilirubin 0.53. -Vital signs reviewed. Blood pressure 104/66, heart rate 85, respiratory rate 18, temp 98.0 F, and SpO2 of 96% on room air CODE STATUS: Full code DVT prophylaxis: Lovenox Anticipated discharge date: Pending clinical course Anticipated discharge place: Home Patient was seen independently by Nurse Pracitioner. This document was prepared using [employer] dictation software. Please allow for errors in cashier associate, while rare they do occur. Stefano Diana DRY STARCH SUPERVISOR rendered care for this patient independently, reviewed the findings and plan as documented in the note above and agree with plan. I did not physically speak with or examine the patient on this date. Objective - Vital Signs Vital signs: Vital Signs Temp 98 F 09/23/24 07:02 Pulse 85 09/23/24 07:02 Resp 18 09/23/24 07:02 BP 104/66 09/23/24 07:02 Pulse Ox 96 09/23/24 07:02 FiO2 Intake & Output 09/22/24 09/23/24 09/23/24 18:59 06:59 18:59 Intake Total 610 Output Total 300 1000 Balance 310 -1000 Weight 108.862 kg Intake: Intake, IV Titration 390 Amount Sodium Chloride 0.9% 1, 390 000 ml @ 130 mls/hr IV . Q7H42M [facility] Rx#:[id number] Oral 220 Output: Urine 300 1000 Other: # Voids 2 # Bowel Movements 1 - Labs CBC & Chem 7: 09/23/24 05:33 09/23/24 05:33 Labs: Abnormal Lab Results - Last 24 Hours (Table) 09/22/24 09/22/24 09/23/24 Range/Units 23:35 23:35 05:33 WBC 31.8 H (3.8-10.6) k/uL RBC 3.67 L (3.80-5.40) m/uL Hgb 10.8 L (11.4-16.0) gm/dL Hct 33.4 L (34.0-46.0) % MCHC (32.0-37.0) g/dL RDW (11.5-14.5) % Neutrophils # 29.9 H (1.3-7.7) k/uL Lymphocytes # 0.9 L (1.0-4.8) k/uL NRBC/100 WBC Diff (0.00-0.01) X 10*3/uL Sodium 133 L (137-145) mmol/L Carbon Dioxide 21.0 L (21.6-31.8) mmol/L Anion Gap 16.00 H (4.00-12.00) mmol/L BUN 62 H 54.9 H (7-17) mg/dL Creatinine 1.49 H (0.52-1.04) mg/dL Est GFR (CKD-EPI) 37 L (>=60) BUN/Creatinine Ratio 36.60 H (12.00-20.00) Ratio Glucose 154 H 139 H (74-99) mg/dL Calcium 8.2 L 8.2 L (8.4-10.2) mg/dL Magnesium 3.8 H 3.6 H (1.6-2.3) mg/dL Total Bilirubin 1.6 H (0.2-1.3) mg/dL Conjugated Bilirubin 0.53 H (0.20-0.40) mg/dL Unconjugated Bilirubin 0.17 L (0.20-1.00) mg/dL AST 42 H (14-36) U/L ALT 61 H (4-34) U/L Alkaline Phosphatase 268 H (38-126) U/L Total Protein 5.4 L (6.3-8.2) g/dL Albumin 3.0 L (3.5-5.0) g/dL 09/23/24 Range/Units 05:33 WBC 33.38 H (3.8-10.6) k/uL RBC 3.51 L (3.80-5.40) m/uL Hgb 10.1 L (11.4-16.0) gm/dL Hct 33.1 L (34.0-46.0) % MCHC 30.5 L (32.0-37.0) g/dL RDW 16.2 H (11.5-14.5) % Neutrophils # (1.3-7.7) k/uL Lymphocytes # (1.0-4.8) k/uL NRBC/100 WBC Diff 0.02 H (0.00-0.01) X 10*3/uL Sodium (137-145) mmol/L Carbon Dioxide (21.6-31.8) mmol/L Anion Gap (4.00-12.00) mmol/L BUN (7-17) mg/dL Creatinine (0.52-1.04) mg/dL Est GFR (CKD-EPI) (>=60) BUN/Creatinine Ratio (12.00-20.00) Ratio Glucose (74-99) mg/dL Calcium (8.4-10.2) mg/dL Magnesium (1.6-2.3) mg/dL Total Bilirubin (0.2-1.3) mg/dL Conjugated Bilirubin (0.20-0.40) mg/dL Unconjugated Bilirubin (0.20-1.00) mg/dL AST (14-36) U/L ALT (4-34) U/L Alkaline Phosphatase (38-126) U/L Total Protein (6.3-8.2) g/dL Albumin (3.5-5.0) g/dL
[2024-09-23] MEDS: DOCUSATE 100 MG CAP PO SCH (21:49)
[2024-09-23] MEDS: polyethylene glycoL 3350 17 GM POWD.PACK PO SCH (21:49)
[2024-09-23] MEDS: tiZANidine 4 MG TAB PO SCH (21:56)
[2024-09-23] MEDS: PRAMIPEXOLE 1 MG TAB PO SCH (21:56)
[2024-09-23] MEDS: AMITRIPTYLINE HCL 25 MG TAB PO SCH (21:56)
[2024-09-24 01:16] LABS: Glucose,Whole Blood 120 mg/dL (70-110)
[2024-09-24] MEDS: SODIUM CHLORIDE 0.9% 1,000 ML IV ONE ×3 (01:30→03:12)
--- NOTE | 2024-09-24 02:16 | XR ---
EXAM: XR Chest, 1 View CLINICAL HISTORY: ITS.REASON XR Reason: Resp distress TECHNIQUE: Frontal view of the chest. COMPARISON: No relevant prior studies available. FINDINGS: Lungs: Unremarkable. No consolidation. Pleural space: Unremarkable. No pneumothorax. Heart: Cardiomegaly. Mediastinum: Unremarkable. Normal mediastinal contour. Bones/joints: Unremarkable. No acute fracture. Upper abdomen: Elevated RIGHT hemidiaphragm. IMPRESSION: No acute findings in the chest.
[2024-09-24 03:10] LABS: Glucose,Whole Blood 125 mg/dL (70-110)
[2024-09-24 03:22] LABS: Basophils # (A) 0.1 k/uL (0-0.2); Basophils % (A) 0 %; Eosinophils # (A) 0.1 k/uL (0-0.7); Eosinophils % (A) 0 %; HCT 28.3 % (34.0-46.0); Hypochromasia Slight; Lymphocytes # (A) 1.4 k/uL (1.0-4.8); Lymphocytes % (A) 7 %; MCH 28.8 pg (25.0-35.0); MCHC 30.9 g/dL (31.0-37.0); MCV 93.1 fL (80.0-100.0); Mean Platelet Volume 8.9; Monocytes # (A) 0.9 k/uL (0-1.0); Monocytes % (A) 5 %; Neutrophils # (A) 16.9 k/uL (1.3-7.7); Neutrophils % (A) 86 %; Platelet Count 245 k/uL (150-450); RBC 3.04 m/uL (3.80-5.40); RDW 15.4 % (11.5-15.5); WBC 19.6 k/uL (3.8-10.6)
[2024-09-24 03:25] LABS: HGB 8.8 gm/dL (11.4-16.0)
[2024-09-24] MEDS: NOREPINEPHRINE 4 MG in SODIUM CHLORIDE 0.9% 250 ML IV SCH (05:00)
[2024-09-24] MEDS: FAMOTIDINE 20 MG TAB PO SCH (09:10)
--- NOTE | 2024-09-24 10:36 | US ---
EXAMINATION TYPE: US venous doppler duplex LE BI DATE OF EXAM: 09/24/2024 10:27 AM COMPARISON: NONE CLINICAL INDICATION: Female, 69 years old with history of Edema; Portable ICU patient, edema, baby as pirin, Pain TECHNIQUE: The lower extremity deep venous system is examined utilizing real time linear array sonog brittni with graded compression, color doppler sonography, and spectral doppler. SIDE PERFORMED: Bilateral FINDINGS: VESSELS IMAGED: Common Femoral Vein Deep Femoral Vein Greater Saphenous Vein * Femoral Vein Popliteal Vein Small Saphenous Vein * Proximal Calf Veins (* superficial vessels) Patient unable to tolerate bilateral FV compressions The deep venous systems of both lower extremities from the common femoral remains to the proximal saima f veins are patent and compressible with augmentable flow and with normal waveforms. IMPRESSION: No evidence of bilateral lower extremity DVT from the common femoral veins to the proximal calf veins [facility], Workstation: [id number] 09/24/2024 10:34 AM
[2024-09-24 10:56] LABS: ALT 35 U/L (8-44); AST 17 U/L (13-35); Albumin 2.5 g/dL (3.8-4.9); Albumin/Globulin Ratio 1.47 Ratio (1.60-3.17); Alkaline Phosphatase 170 U/L (41-126); BUN/Creat Ratio 30.77 Ratio (12.00-20.00); Calcium 7.2 mg/dL (8.7-10.3); Chloride 105 mmol/L (96-109); Globulin 1.7 g/dL (1.6-3.3); Glucose 113 mg/dL (70-110); Magnesium 3.1 mg/dL (1.5-2.4); Potassium 4.3 mmol/L (3.5-5.5); Sodium 135 mmol/L (135-145); Total Bilirubin 0.5 mg/dL (0.3-1.2); Total Protein 4.2 g/dL (6.2-8.2)
[2024-09-24] MEDS: PIPERACILLIN-TAZOBACTAM 3.375 GM in SODIUM CHLORIDE 0.9% 100 ML IVPB SCH (11:24)
[2024-09-24] MEDS: SODIUM CHLORIDE 0.9% 2,000 ML IV ONE (13:26)
--- NOTE | 2024-09-24 13:45 | P.CNPUL ---
History of Present Illness Consult date: 09/24/24 Requesting physician: Shay Rm Reason for consult: other (Hypotension) Chief complaint: Abdominal pain and distention with constipation History of present illness: This is a 69-year-old female known history of hypertension, patient had left total knee arthroplasty about 2 weeks ago, patient was seen in the ER at [facility] complaining of abdominal pain constipation and distention. Has been on narcotics for her left knee pain/postsurgical pain, transferred to [facility] for further evaluation as her CT of the abdomen question colitis. CT also showed diffuse constipation and nonspecific colitis at the splenic flexure. Patient had ultrasound of the left lower extremity which was negative for DVT patient was admitted initially to the regular medical floor last night the patient developed low blood pressure did not improve much with the first 2 L of IV fluids given, I was notified about this patient late at night and I recommended another bolus of fluid and if no improvement patient to be started on norepinephrine. Considering the patient may have required norepinephrine patient was transferred to the ICU however did not end up requiring pressors. Her blood pressure responded well to treatment, did not require any other intervention except IV fluids. Her abdominal issues are being addressed by the admitting physician patient remains a bit constipated. No nausea no vomiting no fever no chills WBC count is 19.6 hemoglobin 8.8 electrolytes are normal BUN is 40 creatinine 1.3 initial creatinine on admission was 1.49 creatinine improved significantly with fluids considering her abdominal symptoms, patient was placed on antibiotics in the form of Zosyn. Vitals this morning showed blood pressure of 135/83 her O2 sat showed 95% on room air, patient has no active pulmonary symptoms no cough no wheezing no shortness of breath and no chest pain. Review of Systems REVIEW OF SYSTEMS: CONSTITUTIONAL: Negative EYES: Negative. ENT: Negative. CARDIAC: Negative. PULMONARY: Negative GI: As noted in HPI GENITOURINARY: Negative MUSCULOSKELETAL: Negative. SKIN: Negative. NEUROPSYCH: Negative. ENDOCRINE: Negative. HEMATOLOGIC: Negative. Past Medical History Past Medical History: Hypertension, Osteoarthritis (OA) Additional Past Medical History / Comment(s): "Possible sleep apnea." Restless leg syndrome. "Might have had a stroke behind left eye." Poor vision rt eye. History of Any Multi-Drug Resistant Organisms: None Reported Past Surgical History: Appendectomy, Hysterectomy, Orthopedic Surgery Additional Past Surgical History / Comment(s): Meniscus removal lt knee, Tendon release lt wrist, Colonoscopy, bx lt mandaeism area, Bone marrow donor. Past Anesthesia/Blood Transfusion Reactions: No Reported Reaction Additional Past Anesthesia/Blood Transfusion Reaction / Comment(s): No hx of blood transfusion to date. Past Psychological History: No Psychological Hx Reported Smoking Status: Never smoker, Vaper Past Alcohol Use History: Rare Past Drug Use History: Marijuana - Past Family History Sister(s) Family Medical History: Cancer Additional Family Medical History / Comment(s): Leukemia Father Family Medical History: Cancer Additional Family Medical History / Comment(s): Colon cancer. Medications and Allergies Home Medications Medication Instructions Recorded Confirmed Type Amitriptyline HCl [Elavil] 25 mg PO HS 09/11/24 09/23/24 History Gabapentin 600 mg PO TID 09/11/24 09/23/24 History Magnesium(Unknown Dose) 1 tab PO HS 09/11/24 09/23/24 History Meloxicam [Mobic] 15 mg PO DAILY 09/11/24 09/23/24 History Potassium(Unknown Dose) 1 tab PO DAILY 09/11/24 09/23/24 History lisinopriL [Zestril] 30 mg PO DAILY 09/11/24 09/23/24 History tiZANidine [Zanaflex] 4 mg PO HS 09/11/24 09/23/24 History Aspirin 81 mg PO BID #60 tab 09/14/24 09/23/24 Rx Diclofenac Sodium [Voltaren] 75 mg PO BID #60 tab 09/14/24 09/23/24 Rx Docusate [Colace] 100 mg PO BID #60 capsule 09/14/24 09/23/24 Rx Doxycycline Monohydrate 100 mg PO BID #30 cap 09/14/24 09/23/24 Rx HYDROcodone/APAP 5-325MG [Jackman 1 - 2 tab PO Q6HR PRN #56 tab 09/14/24 09/23/24 Rx 5-325] Omeprazole 40 mg PO DAILY #30 cap 09/14/24 09/23/24 Rx Ondansetron [Zofran] 4 mg PO Q8HR PRN #20 tab 09/14/24 09/23/24 Rx Pramipexole [Mirapex] 1 mg PO HS 09/23/24 09/23/24 History Vit C/E/Zn/Coppr/Lutein/Zeaxan 1 cap PO BID 09/23/24 09/23/24 History [Preservision Areds 2 Softgel] hydroCHLOROthiazide [Hydrodiuril] 12.5 mg PO DAILY 09/23/24 09/23/24 History Allergies Allergy/AdvReac Type Severity Reaction Status Date / Time No Known Allergies Allergy Verified 09/22/24 22:40 Physical Exam Vitals: Vital Signs Temp Pulse Pulse Resp BP BP Pulse Ox 09/24/24 11:00 82 14 135/83 96 09/24/24 10:30 75 26 H 128/74 96 09/24/24 10:00 75 21 120/59 93 L 09/24/24 09:30 76 20 107/66 95 09/24/24 09:00 81 28 H 122/75 98 09/24/24 08:45 80 16 117/79 98 09/24/24 08:30 78 15 119/69 98 09/24/24 08:15 82 15 117/72 95 09/24/24 08:00 97.4 F L 79 16 121/76 99 09/24/24 07:45 75 17 131/88 98 09/24/24 07:30 76 13 128/60 90 L 09/24/24 07:15 78 15 110/60 90 L 09/24/24 07:00 84 28 H 103/81 99 09/24/24 06:45 80 14 85/53 98 09/24/24 06:30 71 12 94/57 98 09/24/24 06:15 76 14 95/60 98 09/24/24 06:00 73 12 100/63 98 09/24/24 05:45 73 12 105/58 99 09/24/24 05:30 75 12 93/56 99 09/24/24 05:15 75 12 111/61 99 09/24/24 05:00 75 12 104/60 100 09/24/24 04:45 77 12 86/62 100 09/24/24 04:30 78 12 92/61 100 09/24/24 04:15 78 12 89/59 100 09/24/24 04:00 97.5 F L 76 13 93/59 100 09/24/24 03:45 81 16 107/72 100 09/24/24 03:30 80 18 105/57 99 09/24/24 03:15 82 16 80/54 98 09/24/24 03:00 87 15 80/54 100 09/24/24 02:20 77/53 09/24/24 02:17 64/40 09/24/24 02:01 98.3 F 83 62/46 98 09/24/24 00:56 97.9 F 71 18 63/42 93 L 09/23/24 19:17 98.3 F 88 17 107/68 95 Intake and Output 09/23/24 09/24/24 09/24/24 22:59 06:59 14:59 Intake Total 3375 890 Output Total 0 80 Balance 3375 810 Intake: IV 3375 670 0.9% NS KVO 25 20 Azithromycin 500 mg In 250 Sodium Chloride 0.9% 250 ml @ 250 mls/hr IVPB DAILY@0600 [facility] Rx#: [id number] Sodium Chloride 0.9% 1, 300 400 000 ml @ 100 mls/hr IV . Q10H [facility] Rx#:[id number] Sodium Chloride 0.9% 1, 3000 000 ml @ 999 mls/hr IV . Q1H1M [facility] Rx#:[id number] cefTRIAXone 2 gm In 50 Sodium Chloride 0.9% 50 ml @ 100 mls/hr IVPB Q24H [facility] Rx#:[id number] Oral 220 Output: Urine 0 80 Other: Voiding Method External Catheter External Catheter # Voids 1 1 # Bowel Movements 2 2 Weight 119.5 kg General: Revealed 69-year-old female obese in no distress on room air Head: Atraumatic normocephalic Eyes: PERRLA, EOMI, nonicteric Mouth: Moist mucous membranes Cardiovascular: Distant S1-S2, no S3 gallop Lungs: Clear bilaterally no rhonchi no wheezes Abdominal: Obese soft slightly distended nontender no rebound no guarding Ext: 1+ bipedal edema surgical changes noted over the left knee with some swelling Neuro: alert oriented x 3 no gross focal deficit Psych: Normal mood affect and no mental status examination Results - Laboratory Findings CBC and BMP: 09/24/24 02:41 09/24/24 02:41 Abnormal lab findings: Abnormal Labs 09/22/24 09/22/24 09/23/24 23:35 23:35 05:33 WBC 31.8 H RBC 3.67 L Hgb 10.8 L Hct 33.4 L MCHC RDW Neutrophils # 29.9 H Lymphocytes # 0.9 L NRBC/100 WBC Diff Sodium 133 L Carbon Dioxide 21.0 L Anion Gap 16.00 H BUN 62 H 54.9 H Creatinine 1.49 H Est GFR (CKD-EPI) 37 L BUN/Creatinine Ratio 36.60 H Glucose 154 H 139 H POC Glucose (mg/dL) Calcium 8.2 L 8.2 L Magnesium 3.8 H 3.6 H Total Bilirubin 1.6 H Conjugated Bilirubin 0.53 H Unconjugated Bilirubin 0.17 L AST 42 H ALT 61 H Alkaline Phosphatase 268 H Total Protein 5.4 L Albumin 3.0 L Albumin/Globulin Ratio 09/23/24 09/24/24 09/24/24 05:33 01:14 02:41 WBC 33.38 H RBC 3.51 L Hgb 10.1 L Hct 33.1 L MCHC 30.5 L RDW 16.2 H Neutrophils # Lymphocytes # NRBC/100 WBC Diff 0.02 H Sodium Carbon Dioxide 20.0 L Anion Gap BUN 40.0 H Creatinine Est GFR (CKD-EPI) 44 L BUN/Creatinine Ratio 30.77 H Glucose 113 H POC Glucose (mg/dL) 120 H Calcium 7.2 L Magnesium 3.1 H Total Bilirubin Conjugated Bilirubin Unconjugated Bilirubin AST ALT Alkaline Phosphatase 170 H Total Protein 4.2 L Albumin 2.5 L Albumin/Globulin Ratio 1.47 L 09/24/24 09/24/24 02:41 03:09 WBC 19.6 H RBC 3.04 L Hgb 8.8 L D Hct 28.3 L MCHC 30.9 L RDW Neutrophils # 16.9 H Lymphocytes # NRBC/100 WBC Diff Sodium Carbon Dioxide Anion Gap BUN Creatinine Est GFR (CKD-EPI) BUN/Creatinine Ratio Glucose POC Glucose (mg/dL) 125 H Calcium Magnesium Total Bilirubin Conjugated Bilirubin Unconjugated Bilirubin AST ALT Alkaline Phosphatase Total Protein Albumin Albumin/Globulin Ratio - Diagnostic Findings Chest x-ray: image reviewed (Chest x-ray showed left lower lobe atelectasis, strongly doubt pneumonia) Additional studies: Venous Doppler negative for DVT of the left lower extremity Assessment and Plan Assessment: Impression: Hypovolemic hypotension, responded well to fluid boluses, did not require any pressors Constipation secondary to pain medications given for postsurgical pain Recent left total knee arthroplasty Left lower lobe atelectasis, no evidence of pneumonia, patient has no active pulmonary symptoms whatsoever Questionable colitis, being addressed by internal medicine and infectious di rebecca on the case, placed on Zosyn she was initially on Flagyl Commendation: Continue present supportive care measures Could transfer the patient back to medical surgical floor Continue IV fluids Laxatives for constipation if felt necessary by admitting physician Will continue to follow as needed Time with Patient: Greater than 30
--- NOTE | 2024-09-24 14:20 | P.PN ---
Subjective Progress Note Date: 09/24/24 69-year-old female with a PMH of hypertension, GERD, stage II CKD, restless leg syndrome, and osteoarthritis status post recent left total knee arthroplasty on 09/13/2024. She presented to our facility as a transfer from [facility] secondary to reported findings of nonspecific colitis at splenic flexure and concerns for ileus. Patient initially presented to their facility secondary to reports of abdominal pain and distention accompanied by nausea and vomiting. Upon arrival to our facility, patient underwent evaluation in the ED. Vital signs BP 100/62, HR 89, RR 16, T 98.5 F, and SpO2 of 95% on RA. CBC, CMP significant for WBC 31.8, RBC 3.67, Hg 10.8, Hct 33.4, Na 133, BUN 62, Cr 1.49, glu 154, Ca 8.2, T. Bili 1.6, AST 42, ALT 61, alk phos 268, alb 3. Mag 3.8. Trop < 0.012. Influenza A, influenza B, RSV, COVID, and Legionella negative. Patient admitted under services with consultation to infectious disease. Started on Zosyn and Flagyl. Transferred to ICU overnight for concerns of hypotension. 09/24 Patient was seen and examined. Reports feeling better. 2 bowel movements o gabriele the past 24H. CBC, CMP significant for WBC 19.6, RBC 3.04, Hg 8.8, Hct 28.3, bicarb 20, BUN 40, glu 113, Ca 7.2, alk phos 170, alb 2.5. Mag 3.1. C. diff neg. CXR done this morning negative. Venous duplex neg for DVT. General: non toxic, no distress, appears at stated age Derm: warm, dry Head: atraumatic, normocephalic, symmetric Eyes: EOMI, no lid lag, anicteric sclera Mouth: no lip lesion, mucus membranes moist Cardiovascular: good distal perfusion in all 4 extremities Lungs: breathing comfortably, no accessory muscle use Ext: no gross muscle atrophy, no edema, no contractures Neuro: no focal neuro deficits Psych: Alert, oriented, appropriate affect Based on my assessment of this patient, this patient meets a high complexity level of care. Sepsis due to colitis: C. diff negative. Continue Zosyn 3.75g IV TID and Flagyl 500 mg PO TID. Zofran 4 mg IV TID PRN N/V. Tylenol 650 mg PO Q6H PRN pain or fever. NS at 75 cc/hr. Follow stool and blood cultures. ID on board. BECKY on CKD stage II: IV hydration as above. HTN: Hold HCTZ, Lisinopril due to hypotension. Normocytic anemia: Likely AOCD from CKD. No signs of active bleeding. Also dilutional. Repeat CBC in the AM. RLS: Elavil 25 mg PO QHS. Gabapentin 600 mg PO TID. Mirapex 1 mg PO QHS. Zanaflex 4 m PO QHS. Status post recent left total knee arthroplasty: Ortho on board. CODE STATUS: FULL CODE DVT Prophylaxis: SCD GI Prophylaxis: Designated medical POA if patient is not able to make medical decisions for themselves: I have reviewed the following databases computer consultant notes: Pulmonary. I have reviewed the results of the following tests: CBC, CMP, C. diff. I have ordered the following tests: CBC, CMP in the AM. Stool culture. I have discussed the care of this patient with the following independent historian: I have independently interpreted the following test below: CXR I have discussed the management of this patient with the following physician: Objective - Vital Signs Vital signs: Vital Signs Temp 97.4 F L 09/24/24 08:00 Pulse 82 09/24/24 11:00 Resp 14 09/24/24 11:00 BP 135/83 09/24/24 11:00 Pulse Ox 96 09/24/24 11:00 FiO2 Intake & Output 09/23/24 09/24/24 09/24/24 18:59 06:59 18:59 Intake Total 3375 890 Output Total 1000 0 80 Balance -1000 3375 810 Weight 119.5 kg Intake: IV 3375 670 0.9% NS KVO 25 20 Azithromycin 500 mg In 250 Sodium Chloride 0.9% 250 ml @ 250 mls/hr IVPB DAILY@0600 [facility] Rx#: [id number] Sodium Chloride 0.9% 1, 300 400 000 ml @ 100 mls/hr IV . Q10H [facility] Rx#:[id number] Sodium Chloride 0.9% 1, 3000 000 ml @ 999 mls/hr IV . Q1H1M [facility] Rx#:[id number] cefTRIAXone 2 gm In 50 Sodium Chloride 0.9% 50 ml @ 100 mls/hr IVPB Q24H [facility] Rx#:[id number] Oral 220 Output: Urine 1000 0 80 Other: Voiding Method External Catheter External Catheter # Voids 3 1 1 # Bowel Movements 2 2 - Labs CBC & Chem 7: 09/24/24 02:41 09/24/24 02:41 Labs: Abnormal Lab Results - Last 24 Hours (Table) 09/24/24 09/24/24 09/24/24 Range/Units 01:14 02:41 02:41 WBC 19.6 H (3.8-10.6) k/uL RBC 3.04 L (3.80-5.40) m/uL Hgb 8.8 L D (11.4-16.0) gm/dL Hct 28.3 L (34.0-46.0) % MCHC 30.9 L (31.0-37.0) g/dL Neutrophils # 16.9 H (1.3-7.7) k/uL Carbon Dioxide 20.0 L (21.6-31.8) mmol/L BUN 40.0 H (9.0-27.0) mg/dL Est GFR (CKD-EPI) 44 L (>=60) BUN/Creatinine Ratio 30.77 H (12.00-20.00) Ratio Glucose 113 H (70-110) mg/dL POC Glucose (mg/dL) 120 H (70-110) mg/dL Calcium 7.2 L (8.7-10.3) mg/dL Magnesium 3.1 H (1.5-2.4) mg/dL Alkaline Phosphatase 170 H (41-126) U/L Total Protein 4.2 L (6.2-8.2) g/dL Albumin 2.5 L (3.8-4.9) g/dL Albumin/Globulin Ratio 1.47 L (1.60-3.17) Ratio 09/24/24 Range/Units 03:09 WBC (3.8-10.6) k/uL RBC (3.80-5.40) m/uL Hgb (11.4-16.0) gm/dL Hct (34.0-46.0) % MCHC (31.0-37.0) g/dL Neutrophils # (1.3-7.7) k/uL Carbon Dioxide (21.6-31.8) mmol/L BUN (9.0-27.0) mg/dL Est GFR (CKD-EPI) (>=60) BUN/Creatinine Ratio (12.00-20.00) Ratio Glucose (70-110) mg/dL POC Glucose (mg/dL) 125 H (70-110) mg/dL Calcium (8.7-10.3) mg/dL Magnesium (1.5-2.4) mg/dL Alkaline Phosphatase (41-126) U/L Total Protein (6.2-8.2) g/dL Albumin (3.8-4.9) g/dL Albumin/Globulin Ratio (1.60-3.17) Ratio
[2024-09-24] MEDS: SODIUM CHLORIDE 0.9% 1,000 ML IV SCH (15:46)
--- NOTE | 2024-09-24 23:07 | P.CONS ---
History of Present Illness - Reason for Consult Consult date: 09/24/24 Pneumonia with severe leukocytosis Requesting physician: Stefano Diana - Chief Complaint Abdominal pain nausea vomiting x 2 days - History of Present Illness Patient is a 69-year-old female with a past medical history negative for hypertension osteoarthritis and this patient who recently did have a left knee replacement on 09/13/2024 patient apparently mentioned that she has developed constipation postsurgery from using pain medication and aspirin and the patient presented to [facility] for abdominal pain and distention that the pain has been getting worse over the last few days and the patient was constipated with no bowel movement with associated nausea no vomiting patient did have a CT of abdominal pelvis in that region with evidence of nonspecific colitis. Patient subsequently was transferred to [facility] for further evaluation on presentation to this facility the patient was afebrile and no fever have been recorded subsequently patient was nontachycardic hypotensive or hypoxic currently not requiring supplemental oxygen patient did have a elevated white count of 33.38 with a left shift creatinine is 1.5 liver isms mildly e levated did have a procalcitonin 0.85, patient tested negative for influenza RSV and COVID chest x-ray done here left lower lobe consolidation concerning for pneumonia with repeat x-ray no acute findings in the chest that is within 24 hours abdominal ultrasound unremarkable right upper quadrant ultrasound patient did have venous Doppler that was negative for DVT infectious disease was consulted regarding a severe leukocytosis with pneumonia patient is currently being treated with a Rocephin and Zithromax Review of Systems Positive point and negatives has been mentioned in the HPI, complete review of systems was performed and all other systems are negative Past Medical History Past Medical History: Hypertension, Osteoarthritis (OA) Additional Past Medical History / Comment(s): "Possible sleep apnea." Restless leg syndrome. "Might have had a stroke behind left eye." Poor vision rt eye. History of Any Multi-Drug Resistant Organisms: None Reported Past Surgical History: Appendectomy, Hysterectomy, Orthopedic Surgery Additional Past Surgical History / Comment(s): Meniscus removal lt knee, Tendon release lt wrist, Colonoscopy, bx lt yarsani area, Bone marrow donor. Past Anesthesia/Blood Transfusion Reactions: No Reported Reaction Additional Past Anesthesia/Blood Transfusion Reaction / Comm: No hx of blood transfusion to date. Past Psychological History: No Psychological Hx Reported Smoking Status: Never smoker, Vaper Past Alcohol Use History: Rare Past Drug Use History: Marijuana - Past Family History Sister(s) Family Medical History: Cancer Additional Family Medical History / Comment(s): Leukemia Father Family Medical History: Cancer Additional Family Medical History / Comment(s): Colon cancer. Medications and Allergies Home Medications Medication Instructions Recorded Confirmed Type Amitriptyline HCl [Elavil] 25 mg PO HS 09/11/24 09/23/24 History Gabapentin 600 mg PO TID 09/11/24 09/23/24 History Magnesium(Unknown Dose) 1 tab PO HS 09/11/24 09/23/24 History Meloxicam [Mobic] 15 mg PO DAILY 09/11/24 09/23/24 History Potassium(Unknown Dose) 1 tab PO DAILY 09/11/24 09/23/24 History lisinopriL [Zestril] 30 mg PO DAILY 09/11/24 09/23/24 History tiZANidine [Zanaflex] 4 mg PO HS 09/11/24 09/23/24 History Aspirin 81 mg PO BID #60 tab 09/14/24 09/23/24 Rx Diclofenac Sodium [Voltaren] 75 mg PO BID #60 tab 09/14/24 09/23/24 Rx Docusate [Colace] 100 mg PO BID #60 capsule 09/14/24 09/23/24 Rx Doxycycline Monohydrate 100 mg PO BID #30 cap 09/14/24 09/23/24 Rx HYDROcodone/APAP 5-325MG [[place] 1 - 2 tab PO Q6HR PRN #56 tab 09/14/24 09/23/24 Rx 5-325] Omeprazole 40 mg PO DAILY #30 cap 09/14/24 09/23/24 Rx Ondansetron [Zofran] 4 mg PO Q8HR PRN #20 tab 09/14/24 09/23/24 Rx Pramipexole [Mirapex] 1 mg PO HS 09/23/24 09/23/24 History Vit C/E/Zn/Coppr/Lutein/Zeaxan 1 cap PO BID 09/23/24 09/23/24 History [Preservision Areds 2 Softgel] hydroCHLOROthiazide [Hydrodiuril] 12.5 mg PO DAILY 09/23/24 09/23/24 History Allergies Allergy/AdvReac Type Severity Reaction Status Date / Time No Known Allergies Allergy Verified 09/22/24 22:40 Physical Exam Vitals: Vital Signs Temp Pulse Pulse Resp BP BP Pulse Ox 09/24/24 09:00 81 28 H 122/75 98 09/24/24 08:45 80 16 117/79 98 09/24/24 08:30 78 15 119/69 98 09/24/24 08:15 82 15 117/72 95 09/24/24 08:00 97.4 F L 79 16 121/76 99 09/24/24 07:45 75 17 131/88 98 09/24/24 07:30 76 13 128/60 90 L 09/24/24 07:15 78 15 110/60 90 L 09/24/24 07:00 84 28 H 103/81 99 09/24/24 06:45 80 14 85/53 98 09/24/24 06:30 71 12 94/57 98 09/24/24 06:15 76 14 95/60 98 09/24/24 06:00 73 12 100/63 98 09/24/24 05:45 73 12 105/58 99 09/24/24 05:30 75 12 93/56 99 09/24/24 05:15 75 12 111/61 99 09/24/24 05:00 75 12 104/60 100 09/24/24 04:45 77 12 86/62 100 09/24/24 04:30 78 12 92/61 100 09/24/24 04:15 78 12 89/59 100 09/24/24 04:00 97.5 F L 76 13 93/59 100 09/24/24 03:45 81 16 107/72 100 09/24/24 03:30 80 18 105/57 99 09/24/24 03:15 82 16 80/54 98 09/24/24 03:00 87 15 80/54 100 09/24/24 02:20 77/53 09/24/24 02:17 64/40 09/24/24 02:01 98.3 F 83 62/46 98 09/24/24 00:56 97.9 F 71 18 63/42 93 L 09/23/24 19:17 98.3 F 88 17 107/68 95 09/23/24 12:49 98.2 F 80 17 132/71 96 Intake and Output 12/0709/24/24 09/24/24 22:59 06:59 14:59 Intake Total 3375 360 Output Total 0 Balance 3375 360 Intake: IV 3375 360 0.9% NS KVO 25 10 Azithromycin 500 mg In 250 Sodium Chloride 0.9% 250 ml @ 250 mls/hr IVPB DAILY@0600 [facility] Rx#: [id number] Sodium Chloride 0.9% 1, 300 100 000 ml @ 100 mls/hr IV . Q10H [facility] Rx#:[id number] Sodium Chloride 0.9% 1, 3000 000 ml @ 999 mls/hr IV . Q1H1M [facility] Rx#:[id number] cefTRIAXone 2 gm In 50 Sodium Chloride 0.9% 50 ml @ 100 mls/hr IVPB Q24H [facility] Rx#:[id number] Output: Urine 0 Other: Voiding Method External Catheter # Voids 1 # Bowel Movements 2 Weight 119.5 kg GENERAL DESCRIPTION: Elderly female lying in bed, no distress. No tachypnea or accessory muscle of respiration use. HEENT: Shows Pallor , no scleral icterus. Oral mucous membrane is dry. N NECK: Trachea central, no thyromegaly. LUNGS: Unlabored breathing. Decreased breath sound the base HEART: S1, S2, regular rate and rhythm. No loud murmur ABDOMEN: Soft, no tenderness , EXTREMITIES: Left knee incision is currently dressed no drainage did have some swelling and erythema to the lower extremity which is warm to touch SKIN: No rash, no masses palpable. NEUROLOGICAL: The patient is awake, alert, oriented x3, mood and affect normal. Results CBC & Chem 7: 09/24/24 02:41 09/24/24 02:41 Labs: Abnormal Lab Results - Last 24 Hours (Table) 09/23/24 09/23/24 09/24/24 Range/Units 05:33 05:33 01:14 WBC 33.38 H (4.50-10.00) X 10*3/uL RBC 3.51 L (4.10-5.20) X 10*6/uL Hgb 10.1 L (12.0-15.0) g/dL Hct 33.1 L (37.2-46.3) % MCHC 30.5 L (32.0-37.0) g/dL RDW 16.2 H (11.5-14.5) % Neutrophils # (1.3-7.7) k/uL NRBC/100 WBC Diff 0.02 H (0.00-0.01) X 10*3/uL Carbon Dioxide 21.0 L (21.6-31.8) mmol/L Anion Gap 16.00 H (4.00-12.00) mmol/L BUN 54.9 H (9.0-27.0) mg/dL Est GFR (CKD-EPI) 37 L (>=60) BUN/Creatinine Ratio 36.60 H (12.00-20.00) Ratio Glucose 139 H (70-110) mg/dL POC Glucose (mg/dL) 120 H (70-110) mg/dL Calcium 8.2 L (8.7-10.3) mg/dL Magnesium 3.6 H (1.5-2.4) mg/dL Conjugated Bilirubin 0.53 H (0.20-0.40) mg/dL Unconjugated Bilirubin 0.17 L (0.20-1.00) mg/dL 09/24/24 09/24/24 Range/Units 02:41 03:09 WBC 19.6 H (4.50-10.00) X 10*3/uL RBC 3.04 L (4.10-5.20) X 10*6/uL Hgb 8.8 L D (12.0-15.0) g/dL Hct 28.3 L (37.2-46.3) % MCHC 30.9 L (32.0-37.0) g/dL RDW (11.5-14.5) % Neutrophils # 16.9 H (1.3-7.7) k/uL NRBC/100 WBC Diff (0.00-0.01) X 10*3/uL Carbon Dioxide (21.6-31.8) mmol/L Anion Gap (4.00-12.00) mmol/L BUN (9.0-27.0) mg/dL Est GFR (CKD-EPI) (>=60) BUN/Creatinine Ratio (12.00-20.00) Ratio Glucose (70-110) mg/dL POC Glucose (mg/dL) 125 H (70-110) mg/dL Calcium (8.7-10.3) mg/dL Magnesium (1.5-2.4) mg/dL Conjugated Bilirubin (0.20-0.40) mg/dL Unconjugated Bilirubin (0.20-1.00) mg/dL Assessment and Plan (1) Leukocytosis Current Visit: Yes Status: Acute Code(s): D72.829 - ELEVATED WHITE BLOOD CELL COUNT, UNSPECIFIED SNOMED Code(s): 075931898 (2) Colitis Current Visit: Yes Status: Acute Code(s): K52.9 - NONINFECTIVE GA STROENTERITIS AND COLITIS, UNSPECIFIED SNOMED Code(s): 24527516 Plan: 1patient presenting to the hospital with abdominal pain distention nausea and vomiting in this patient has been constipated post her knee surgery did have a elevated white count with a CT abdominal pelvis done in the outside facility did not mention colitis possible diverticulitis patient is having some diarrhea now after receiving laxative clinic not behaving as C. difficile colitis 2patient do not have significant respiratory symptom chest x-ray completed yesterday did not mention any pneumonia clinically not behaving as pneumonia. 3discontinue Rocephin and Zithromax. 4we will treat the patient with Zosyn 3.375 g every 8 hours for possible colitis slight diverticulitis We will follow on clinical condition and cultures to further adjust medication if needed Thank you for this consultation we will follow the patient along with you Dictation was produced using [employer] dictation software. please excuse any grammatical, word or spelling errors. Time with Patient: Greater than 30
--- NOTE | 2024-09-25 08:01 | P.CNOR ---
History of Present Illness - [facility] Consult date: 09/25/24 History of present illness: the patient is a very pleasant 69-year-old female who is well-known to me. The patient underwent an uncomplicated left total knee replacement at the end of August. She was doing relatively well in regards to her knee replacement. Unfortunately she developed abdominal distention and pain. She was initially seen at an outside facility and then transferred here. Orthopedics was consulted due to her being a recent postoperative patient. This morning she is complaining of mild pain in her left knee. Past Medical History Past Medical History: Hypertension, Osteoarthritis (OA) Additional Past Medical History / Comment(s): "Possible sleep apnea." Restless leg syndrome. "Might have had a stroke behind left eye." Poor vision rt eye. History of Any Multi-Drug Resistant Organisms: None Reported Past Surgical History: Appendectomy, Hysterectomy, Orthopedic Surgery Additional Past Surgical History / Comment(s): Meniscus removal lt knee, Tendon release lt wrist, Colonoscopy, bx lt mandaeism area, Bone marrow donor. Past Anesthesia/Blood Transfusion Reactions: No Reported Reaction Additional Past Anesthesia/Blood Transfusion Reaction / Comm: No hx of blood transfusion to date. Past Psychological History: No Psychological Hx Reported Smoking Status: Never smoker, Vaper Past Alcohol Use History: Rare Past Drug Use History: Marijuana - Past Family History Sister(s) Family Medical History: Cancer Additional Family Medical History / Comment(s): Leukemia Father Family Medical History: Cancer Additional Family Medical History / Comment(s): Colon cancer. Medications and Allergies Home Medications Medication Instructions Recorded Confirmed Type Amitriptyline HCl [Elavil] 25 mg PO HS 09/11/24 09/23/24 History Gabapentin 600 mg PO TID 09/11/24 09/23/24 History Magnesium(Unknown Dose) 1 tab PO HS 09/11/24 09/23/24 History Meloxicam [Mobic] 15 mg PO DAILY 09/11/24 09/23/24 History Potassium(Unknown Dose) 1 tab PO DAILY 09/11/24 09/23/24 History lisinopriL [Zestril] 30 mg PO DAILY 09/11/24 09/23/24 History tiZANidine [Zanaflex] 4 mg PO HS 09/11/24 09/23/24 History Aspirin 81 mg PO BID #60 tab 09/14/24 09/23/24 Rx Diclofenac Sodium [Voltaren] 75 mg PO BID #60 tab 09/14/24 09/23/24 Rx Docusate [Colace] 100 mg PO BID #60 capsule 09/14/24 09/23/24 Rx Doxycycline Monohydrate 100 mg PO BID #30 cap 09/14/24 09/23/24 Rx HYDROcodone/APAP 5-325MG [[place] 1 - 2 tab PO Q6HR PRN #56 tab 09/14/24 09/23/24 Rx 5-325] Omeprazole 40 mg PO DAILY #30 cap 09/14/24 09/23/24 Rx Ondansetron [Zofran] 4 mg PO Q8HR PRN #20 tab 09/14/24 09/23/24 Rx Pramipexole [Mirapex] 1 mg PO HS 09/23/24 09/23/24 History Vit C/E/Zn/Coppr/Lutein/Zeaxan 1 cap PO BID 09/23/24 09/23/24 History [Preservision Areds 2 Softgel] hydroCHLOROthiazide [Hydrodiuril] 12.5 mg PO DAILY 09/23/24 09/23/24 History Allergies Allergy/AdvReac Type Severity Reaction Status Date / Time No Known Allergies Allergy Verified 09/22/24 22:40 Physical Examination patient is resting comfortably in bed. She is alert and able to answer questions. A focused exam the left lower extremity was conducted. On inspection she has moderate swelling throughout the lower leg. She has mild chronic cellulitis. Dressing was removed over her knee. The incision is intact with no surrounding erythema or drainage. A new dressing was applied. The thigh and calf are soft and compressible. She can actively plantarflex and dorsiflex her ankle and her toes. Results - Labs Labs: Abnormal Lab Results - Last 24 Hours (Table) 09/24/24 09/24/24 Range/Units 02:41 02:41 Carbon Dioxide 20.0 L (21.6-31.8) mmol/L BUN 40.0 H (9.0-27.0) mg/dL Est GFR (CKD-EPI) 44 L (>=60) BUN/Creatinine Ratio 30.77 H (12.00-20.00) Ratio Glucose 113 H (70-110) mg/dL Calcium 7.2 L (8.7-10.3) mg/dL Magnesium 3.1 H (1.5-2.4) mg/dL Alkaline Phosphatase 170 H (41-126) U/L Total Protein 4.2 L (6.2-8.2) g/dL Albumin 2.5 L (3.8-4.9) g/dL Albumin/Globulin Ratio 1.47 L (1.60-3.17) Ratio Procalcitonin 0.85 H (0.02-0.50) ng/mL Microbiology - Last 24 Hours (Table) 09/23/24 17:44 Blood Culture - Preliminary Blood H & H 09/22/24 09/23/24 09/24/24 Range/Units 23:35 05:33 02:41 Hgb 10.8 L 10.1 L 8.8 L D (11.4-16.0) gm/dL Hct 33.4 L 33.1 L 28.3 L (34.0-46.0) % Result Diagrams: 09/24/24 02:41 09/24/24 02:41 Assessment and Plan Assessment: status post left total knee replacement 09/13/2024 Possible postoperative ileus Multiple medical problems Plan: The patient is doing relatively well in regards to her knee. Her dressing was changed there is no sign of erythema or drainage around her incision. She can continue routine postoperative care for knee replacement including weightbearing as tolerated and physical therapy. We've surgical dressing in place. Normal p ostoperative DVT prophylaxis is with aspirin 81 mg twice a day. Appreciate internal medicine and all medical consultants management of her postoperative GI issues.
[2024-09-25 09:42] LABS: HCT 32.2 % (34.0-46.0); HGB 10.1 gm/dL (11.4-16.0); MCH 29.5 pg (25.0-35.0); MCHC 31.4 g/dL (31.0-37.0); MCV 93.9 fL (80.0-100.0); RBC 3.42 m/uL (3.80-5.40); WBC 17.5 k/uL (3.8-10.6)
[2024-09-25 09:43] LABS: Hypochromasia Marked; Mean Platelet Volume 8.4; Platelet Count 273 k/uL (150-450)
[2024-09-25 09:54] LABS: ALT 27 U/L (4-34); AST 22 U/L (14-36); African American GFR (CKD) >90 (>60 ml/min/1.73 sqM); Albumin 2.6 g/dL (3.5-5.0); Albumin/Globulin Ratio 1.2; Alkaline Phosphatase 184 U/L (38-126); Anion Gap 5 mmol/L; Blood Urea Nitrogen 22 mg/dL (7-17); Carbon Dioxide 25 mmol/L (22-30); Chloride 106 mmol/L (98-107); Globulin 2.2 g/dL; Glucose 97 mg/dL (74-99); Magnesium 2.6 mg/dL (1.6-2.3); Non-African American GFR(CKD) 80 (>60 ml/min/1.73 sqM); Potassium 4.3 mmol/L (3.5-5.1); Sodium 136 mmol/L (137-145); Total Bilirubin 0.7 mg/dL (0.2-1.3); Total Protein 4.8 g/dL (6.3-8.2)
--- NOTE | 2024-09-25 14:56 | P.PN ---
Subjective Progress Note Date: 09/25/24 Hospital course: Patient is a very pleasant 69-year-old female with a past medical history of hypertension, GERD, stage II chronic kidney disease, restless leg syndrome, and osteoarthritis status post recent left total knee arthroplasty on 09/13/2024. She presented to our facility as a transfer from [facility] secondary to reported findings of nonspecific colitis at splenic flexure and concerns for ileus. Patient initially presented to their facility secondary to reports of abdominal pain and distention accompanied by nausea and vomiting. Upon arrival to our facility, patient underwent evaluation in the emergency department. Vital signs upon arrival to our facility show blood pressure 100/62, heart rate 89, respiratory rate 16, temp 98.5 F, and SpO2 of 95% on room air. Labs completed and reviewed. CBC showing leukocytosis with WBC count of 31.8 and hemoglobin of 10.8. BMP showing high anion gap metabolic acidosis with chloride of 100, bicarb 21, and anion gap of 16 with an acute kidney injury with BUN of 62, creatinine of 1.49, GFR of 36 with baseline creatinine of 0.79. Liver profile showing hyperbilirubinemia and transaminitis with total bili of 1.6, AST of 42, ALT of 61, and alkaline phosphatase of 268. Albumin was low at 3.0. Influenza A, influenza B, RSV, COVID, and Legionella negative. Patient admitted under services with consultation to infectious disease.Abdominal ultrasound was completed showing unremarkable right upper quadrant ultrasound examination. Physical exam: Patient seen and fully evaluated at bedside this morning. Patient reports continued diffuse abdominal pain/cramping. States she has been having bowel mo vements today and requesting to have diet advanced. Diet being advanced to full liquid and will monitor how patient tolerates. Patient otherwise denies having any nausea, vomiting, or any other complaints. She reports mild pain to left knee controlled with Tylenol. Vital signs reviewed and stable. General: Nontoxic, no distress and appears stated age. Derm: Skin warm and dry, normal coloration for ethnicity. Head: Atraumatic, normocephalic and symmetric. Eyes: EOM's intact, no lid lag, and anicteric sclera Mouth: no lip lesions, mucus membranes moist Cardiovascular: regular rate and rhythm with normal S1S2, no murmur, positive posterior tibial pulses bilaterally, and cap refill < 2 seconds. Lungs: Respirations even, regular, and unlabored on room air. Lungs CTA bilaterally, no rhonchi, no rales, no wheezing, and no accessory muscle usage. Abdominal: Taut and distended with diffuse abdominal tenderness, no guarding, no appreciable organomegaly Ext: No gross muscle atrophy, no contractures and sensation intact. Patient with left lower extremity edema and bruising with postsurgical dressing/Leodan wrap in place to left knee. No erythema, drainage, or signs of infection noted. Neuro: Speech clear, face symmetrical and CN II-XII grossly intact with no noted focal neuro deficits Psych: Alert and oriented to person, place, time, and situation. Appropriate and pleasant affect. Assessment and Plan of Care: Sepsis due to Colitis Transaminitis and hyperbilirubinemia Constipation with concerns of postoperative ileus Left lower lobe pneumonia Acute kidney injury, improved with IV fluid hydration High anion gap metabolic acidosis -Infectious disease following, reviewed documentation in chart. -Continue IV antibiotics with Zosyn 3.375 g every 8 hours and Flagyl 500 mg 3 times daily.. -C. difficile was negative. -Continue MiraLAX 17 g daily and Colace 100 mg twice daily. Monitor output. -Blood culture showing no growth to date. Urine culture was negative. -Abdominal ultrasound was completed showing unremarkable right upper quadrant ultrasound examination. -Hold lisinopril and hydrochlorothiazide secondary to BECKY and episodes of hypotension requiring transfer to ICU Status post recent left total knee arthroplasty -Continue symptomatic care and pain management. -Order placed for physical therapy for evaluation and to work with patient throughout hospitalization. -Fall precautions. Hypertension -Lisinopril and hydrochlorothiazide held at this time secondary to BECKY and episode of hypotension, monitor vital signs closely. Currently blood pressures running soft. Restless leg syndrome with peripheral neuropathy -Continue Neurontin 600 mg 3 times daily, Tizanidine 4 mg nightly and Mirapex 1 mg nightly. Data and imaging reviewed: -Morning labs reviewed. CBC improvement of leukocytosis with WBC count down to 17.5 and stable normocytic anemia with hemoglobin of 10.1 this morning. BMP showing resolution of BECKY with BUN of 22, creatinine of 0.76 and GFR greater than 90. Magnesium remains slightly elevated at 2.6. Liver profile showing elevated alkaline phosphatase of 184 otherwise normal findings. Albumin was low at 2.6. -Blood culture showing no growth to date. Urine culture was negative. -Vital signs reviewed. Blood pressure 112/70, heart rate 78, respiratory rate 18, temp 98.2 F, and SpO2 of 94% on room air. CODE STATUS: Full code DVT prophylaxis: Lovenox Anticipated discharge date: Pending clinical course Anticipated discharge place: Home Patient was seen independently by Nurse Pracitioner. This document was prepared using [employer] dictation software. Please allow for errors in boot and shoe repairman, while rare they do occur. Stefano Diana WASHER OFF rendered care for this patient independently, reviewed the findings and plan as documented in the note above and agree with plan. I did not physically speak with or examine the patient on this date. Objective - Vital Signs Vital signs: Vital Signs Temp 98.2 F 09/25/24 07:20 Pulse 78 09/25/24 07:20 Resp 18 09/25/24 07:20 BP 112/70 09/25/24 07:20 Pulse Ox 94 L 09/25/24 07:20 FiO2 Intake & Output 09/24/24 09/25/24 09/25/24 18:59 06:59 18:59 Intake Total 990 1620 Output Total 80 Balance 910 1620 Weight 118 kg Intake: IV 670 0.9% NS KVO 20 Azithromycin 500 mg In 250 Sodium Chloride 0.9% 250 ml @ 250 mls/hr IVPB DAILY@0600 [facility] Rx#: [id number] Sodium Chloride 0.9% 1, 400 000 ml @ 100 mls/hr IV . Q10H [facility] Rx#:[id number] Oral 320 1620 Output: Urine 80 Other: Voiding Method External Catheter # Voids 2 2 # Bowel Movements 2 - Labs CBC & Chem 7: 09/25/24 09:04 09/25/24 09:04 Labs: Abnormal Lab Results - Last 24 Hours (Table) 09/24/24 09/24/24 Range/Units 02:41 02:41 Carbon Dioxide 20.0 L (21.6-31.8) mmol/L BUN 40.0 H (9.0-27.0) mg/dL Est GFR (CKD-EPI) 44 L (>=60) BUN/Creatinine Ratio 30.77 H (12.00-20.00) Ratio Glucose 113 H (70-110) mg/dL Calcium 7.2 L (8.7-10.3) mg/dL Magnesium 3.1 H (1.5-2.4) mg/dL Alkaline Phosphatase 170 H (41-126) U/L Total Protein 4.2 L (6.2-8.2) g/dL Albumin 2.5 L (3.8-4.9) g/dL Albumin/Globulin Ratio 1.47 L (1.60-3.17) Ratio Procalcitonin 0.85 H (0.02-0.50) ng/mL Microbiology - Last 24 Hours (Table) 09/23/24 17:44 Blood Culture - Preliminary Blood
--- NOTE | 2024-09-25 15:27 | P.PN ---
Subjective Progress Note Date: 09/25/24 This is a 69-year-old female known history of hypertension, patient had left total knee arthroplasty about 2 weeks ago, patient was seen in the ER at [facility] complaining of abdominal pain constipation and distention. Has been on narcotics for her left knee pain/postsurgical pain, transferred to [facility] for further evaluation as her CT of the abdomen question colitis. CT also showed diffuse constipation and nonspecific colitis at the splenic flexure. Patient had ultrasound of the left lower extremity which was negative for DVT patient was admitted initially to the regular medical floor last night the patient developed low blood pressure did not improve much with the first 2 L of IV fluids given, I was notified about this patient late at night and I recommended another bolus of fluid and if no improvement patient to be started on norepinephrine. Considering the patient may have required norepinephrine patient was transferred to the ICU however did not end up requiring pressors. Her blood pressure responded well to treatment, did not require any other intervention except IV fluids. Her abdominal issues are being addressed by the admitting physician patient remains a bit constipated. No nausea no vomiting no fever no chills WBC count is 19.6 hemoglobin 8.8 electrolytes are normal BUN is 40 creatinine 1.3 initial creatinine on admission was 1.49 creatinine improved significantly with fluids considering her abdominal symptoms, patient was placed on antibiotics in the form of Zosyn. Vitals this morning showed blood pressure of 135/83 her O2 sat showed 95% on room air, patient has no active pulmonary symptoms no cough no wheezing no shortness of breath and no chest pain. The patient is seen today September 25, 2024 in follow-up on the regular medical floor. She is sitting up in a chair at the bedside. Awake and alert in no acute distress. Maintaining O2 saturations in the 90s on room air. She is afebrile. Hemodynamically stable. She has normal saline at 50 mL/h. Blood culture revealing no growth. Urine culture revealed no growth. White count 17.5. Hemoglobin 10.1. Platelets 273. Sodium 136. Potassium 4.3. Bicarb 25. BUN 22. Creatinine 0.76. Glucose 97. C. difficile screen was negative. Remains on antibiotics in the form of Zosyn. Objective - Vital Signs Vital signs: Vital Signs Temp 98.2 F 09/25/24 14:10 Pulse 78 09/25/24 14:10 Resp 20 09/25/24 14:10 BP 112/70 09/25/24 07:20 Pulse Ox 94 L 09/25/24 14:10 FiO2 Intake & Output 09/24/24 09/25/24 09/25/24 18:59 06:59 18:59 Intake Total 990 1620 700 Output Total 80 Balance 910 1620 700 Weight 118 kg Intake: IV 670 0.9% NS KVO 20 Azithromycin 500 mg In 250 Sodium Chloride 0.9% 250 ml @ 250 mls/hr IVPB DAILY@0600 [facility] Rx#: [id number] Sodium Chloride 0.9% 1, 400 000 ml @ 100 mls/hr IV . Q10H [facility] Rx#:[id number] Intake, IV Titration 700 Amount Piperacillin-Tazobactam 3 100 .375 gm In Sodium Chloride 0.9% 100 ml @ 25 mls/hr IVPB Q8H [facility] Rx#: [id number] Sodium Chloride 0.9% 1, 600 000 ml @ 75 mls/hr IV . [id number] [facility] Rx#:[id number] Oral 320 1620 Output: Urine 80 Other: Voiding Method External Catheter # Voids 2 2 # Bowel Movements 2 - Exam GENERAL EXAM: Alert, pleasant 69-year-old female, up in a chair, on room air, comfortable in no apparent distress. HEAD: Normocephalic. EYES: Normal reaction of pupils, equal size. NOSE: Clear with pink turbinates. THROAT: No erythema or exudates. NECK: No masses, no JVD. CHEST: No chest wall deformity. LUNGS: Equal air entry with no crackles, wheeze, rhonchi or dullness. CVS: S1 and S2 normal with no audible murmur, regular rhythm. ABDOMEN: No hepatosplenomegaly, normal bowel sounds, no guarding or rigidity. SPINE: No scoliosis or deformity SKIN: No rashes CENTRAL NERVOUS SYSTEM: No focal deficits, tone is normal in all 4 extremities. EXTREMITIES: There is no peripheral edema. No clubbing, no cyanosis. Peripheral pulses are intact. - Labs CBC & Chem 7: 09/25/24 09:04 09/25/24 09:04 Labs: Abnormal Lab Results - Last 24 Hours (Table) 12/08/24 12/09/24 12/09/24 Range/Units 02:41 09:04 09:04 WBC 17.5 H (3.8-10.6) k/uL RBC 3.42 L (3.80-5.40) m/uL Hgb 10.1 L (11.4-16.0) gm/dL Hct 32.2 L (34.0-46.0) % Sodium 136 L (137-145) mmol/L BUN 22 H (7-17) mg/dL Calcium 8.0 L (8.4-10.2) mg/dL Magnesium 2.6 H (1.6-2.3) mg/dL Alkaline Phosphatase 184 H (38-126) U/L Total Protein 4.8 L (6.3-8.2) g/dL Albumin 2.6 L (3.5-5.0) g/dL Procalcitonin 0.85 H (0.02-0.50) ng/mL Microbiology - Last 24 Hours (Table) 09/24/24 02:00 Urine Culture - Final Urine,Catheterized 09/23/24 17:44 Blood Culture - Preliminary Blood Assessment and Plan Assessment: Hypovolemic hypotension, responded well to fluid boluses, did not require any pressors Constipation secondary to pain medications given for postsurgical pain Recent left total knee arthroplasty Left lower lobe atelectasis, no evidence of pneumonia, patient has no active pulmonary symptoms whatsoever Questionable colitis, being addressed by internal medicine and infectious disea se on the case, placed on Zosyn she was initially on Flagyl Plan: The patient was seen and evaluated Labs and medications reviewed Stable and on room air Blood pressure stable Tolerating a full liquid diet Lovenox for DVT prophylaxis Increase her activity as tolerated I have personally seen and examined the patient, performed the documentation and the assessment and plan as written. Number of minutes spent on the visit: 10 Dictation was produced using [employer] dictation software. Please excuse any grammatical, word or spelling errors.
[2024-09-25] MEDS: FAMOTIDINE 20 MG TAB PO SCH (20:54)
--- NOTE | 2024-09-26 08:19 | P.PN ---
Subjective Progress Note Date: 09/25/24 Principal diagnosis: Reason for follow-up is colitis and leukocytosis Patient is a 69-year-old female with a past medical history negative for hypertension osteoarthritis and this patient who recently did have a left knee replacement on 09/13/2024 patient apparently mentioned that she has developed constipation postsurgery subsequent developing abdominal pain constip ation CT abdominal pelvis with evidence of nonspecific colitis. On today's evaluation that is 09/25/2024, patient has been afebrile, patient is breathing comfortably and is currently on room air, patient denies having any significant cough no chest pain, patient denies nausea vomiting abdominal pain slightly decreased did have some loose stools. Patient white count is down to 17.5 creatinine 0.76, stool for C. difficile negative Objective - Vital Signs Vital signs: Vital Signs Temp 98.2 F 09/25/24 07:20 Pulse 78 09/25/24 07:20 Resp 18 09/25/24 07:20 BP 112/70 09/25/24 07:20 Pulse Ox 94 L 09/25/24 07:20 FiO2 Intake & Output 09/24/24 09/25/24 09/25/24 18:59 06:59 18:59 Intake Total 990 1620 Output Total 80 Balance 910 1620 Weight 118 kg Intake: IV 670 0.9% NS KVO 20 Azithromycin 500 mg In 250 Sodium Chloride 0.9% 250 ml @ 250 mls/hr IVPB DAILY@0600 [facility] Rx#: [id number] Sodium Chloride 0.9% 1, 400 000 ml @ 100 mls/hr IV . Q10H [facility] Rx#:[id number] Oral 320 1620 Output: Urine 80 Other: Voiding Method External Catheter # Voids 2 2 # Bowel Movements 2 - Exam GENERAL DESCRIPTION: An elderly female lying in bed in no distress RESPIRATORY SYSTEM: Unlabored breathing , decreased breath sounds at bases HEART: S1 S2 regular rate and rhythm , ABDOMEN: Soft , no tenderness EXTREMITIES: Left lower extremity some swelling and redness - Labs CBC & Chem 7: 09/25/24 09:04 09/25/24 09:04 Labs: Abnormal Lab Results - Last 24 Hours (Table) 09/24/24 09/25/24 09/25/24 Range/Units 02:41 09:04 09:04 WBC 17.5 H (3.8-10.6) k/uL RBC 3.42 L (3.80-5.40) m/uL Hgb 10.1 L (11.4-16.0) gm/dL Hct 32.2 L (34.0-46.0) % Sodium 136 L (137-145) mmol/L BUN 22 H (7-17) mg/dL Calcium 8.0 L (8.4-10.2) mg/dL Magnesium 2.6 H (1.6-2.3) mg/dL Alkaline Phosphatase 184 H (38-126) U/L Total Protein 4.8 L (6.3-8.2) g/dL Albumin 2.6 L (3.5-5.0) g/dL Procalcitonin 0.85 H (0.02-0.50) ng/mL Microbiology - Last 24 Hours (Table) 09/24/24 02:00 Urine Culture - Final Urine,Catheterized 09/23/24 17:44 Blood Culture - Preliminary Blood Assessment and Plan (1) Leukocytosis Current Visit: Yes Status: Acute Code(s): D72.829 - ELEVATED WHITE BLOOD CELL COUNT, UNSPECIFIED SNOMED Code(s): 047576336 (2) Colitis Current Visit: Yes Status: Acute Code(s): K52.9 - NONINFECTIVE GASTROENTERITIS AND COLITIS, UNSPECIFIED SNOMED Code(s): 27428042 Plan: 1patient presenting to the hospital with abdominal pain distention nausea and vomiting in this patient has been constipated post her knee surgery did have a elevated white count with a CT abdominal pelvis done in the outside facility did not mention colitis possible diverticulitis patient is having some diarrhea now after receiving laxative clinic not behaving as C. difficile colitis, stool for C. difficile is negative 2patient do not have significant respiratory symptom chest x-ray completed yesterday did not mention any pneumonia clinically not behaving as pneumonia. 3patient white count is trending down, will treat the patient with Zosyn 3.375 g every 8 hours for possible colitis likely diverticulitis Dictation was produced using [employer] dictation software. please excuse any grammatical, word or spelling errors. Time with Patient: Less than 30
--- NOTE | 2024-09-26 08:36 | P.PN ---
Subjective Progress Note Date: 09/26/24 09/25/2024 Dr. Diaz: The patient is a very pleasant 69-year-old female who is well-known to me. The patient underwent an uncomplicated left total knee replacement at the end of August. She was doing relatively well in regards to her knee replacement. Unfortunately she developed abdominal distention and pain. She was initially seen at an outside facility and then transferred here. Orthopedics was consulted due to her being a recent postoperative patient. This morning she is complaining of mild pain in her left knee. 09/26/2024 progress: No acute events overnight per patient. Patient states they are doing well this morning. Patient states that their abdominal pain and her left knee pain are improved compared to yesterday. Patient states their left knee pain has been controlled with oral pain medication. Objective - Vital Signs Vital signs: Vital Signs Temp 97.7 F 09/26/24 00:34 Pulse 70 09/26/24 00:34 Resp 16 09/26/24 00:34 BP 91/53 09/26/24 00:34 Pulse Ox 95 09/26/24 00:34 FiO2 Intake & Output 09/25/24 09/26/24 09/26/24 18:59 06:59 18:59 Intake Total 700 1080 Balance 700 1080 Weight 118.5 kg Intake: Intake, IV Titration 700 Amount Piperacillin-Tazobactam 3 100 .375 gm In Sodium Chloride 0.9% 100 ml @ 25 mls/hr IVPB Q8H [facility] Rx#: [id number] Sodium Chloride 0.9% 1, 600 000 ml @ 75 mls/hr IV . [id number] [facility] Rx#:[id number] Oral 1080 Other: # Voids 6 4 # Bowel Movements 4 - Exam The patient is resting comfortably in a chair. She is alert and able to answer questions. A focused exam of the left lower extremity was conducted. On inspection she has moderate swelling throughout the lower leg. She has mild chronic cellulitis. There is a surgical dressing over the left knee, it is clean, dry, intact, no surrounding erythema or drainage. Her operative femoral nerve function is grossly intact. The thigh and calf are soft and compressible. She can actively plantarflex and dorsiflex her ankle and her toes. - Labs CBC & Chem 7: 09/25/24 09:04 09/25/24 09:04 Labs: Abnormal Lab Results - Last 24 Hours (Table) 09/25/24 09/25/24 Range/Units 09:04 09:04 WBC 17.5 H (3.8-10.6) k/uL RBC 3.42 L (3.80-5.40) m/uL Hgb 10.1 L (11.4-16.0) gm/dL Hct 32.2 L (34.0-46.0) % Sodium 136 L (137-145) mmol/L BUN 22 H (7-17) mg/dL Calcium 8.0 L (8.4-10.2) mg/dL Magnesium 2.6 H (1.6-2.3) mg/dL Alkaline Phosphatase 184 H (38-126) U/L Total Protein 4.8 L (6.3-8.2) g/dL Albumin 2.6 L (3.5-5.0) g/dL Microbiology - Last 24 Hours (Table) 09/23/24 17:44 Blood Culture - Preliminary Blood 09/24/24 02:00 Urine Culture - Final Urine,Catheterized Assessment and Plan Assessment: status post left total knee replacement 09/13/2024 for severe left knee osteoarthritis Possible postoperative ileus Multiple medical problems Plan: The patient is doing relatively well in regards to her left total knee arthroplasty. Leave surgical dressing in place. Weight-bear as tolerated with assistive device as needed. Work with physical therapy. Will defer anticoagulation to internal medicine at this time. We appreciate internal medicine and all medical consultants management of her p ostoperative GI issues. Will continue to follow. Would like to have outpatient follow-up 1 week after discharge.
[2024-09-26 08:48] LABS: HCT 28.9 % (37.2-46.3); MCH 28.4 pg (27.0-32.0); MCHC 31.1 g/dL (32.0-37.0); MCV 91.2 FL (80.0-97.0); Mean Platelet Volume 11.3 FL (9.5-12.2); NRBC Per 100 WBC 0 X 10*3/uL (0.00-0.01); Platelet Count 279 X 10*3/uL (140-440); RBC 3.17 X 10*6/uL (4.10-5.20); RDW 16.5 % (11.5-14.5); WBC 14.07 X 10*3/uL (4.50-10.00)
[2024-09-26 09:31] LABS: ALT 21 U/L (8-44); AST 16 U/L (13-35); Albumin 2.6 g/dL (3.8-4.9); Albumin/Globulin Ratio 1.62 Ratio (1.60-3.17); Alkaline Phosphatase 152 U/L (41-126); BUN/Creat Ratio 17.86 Ratio (12.00-20.00); Blood Urea Nitrogen 12.5 mg/dL (9.0-27.0); Carbon Dioxide 21.8 mmol/L (21.6-31.8); Chloride 109 mmol/L (96-109); Globulin 1.6 g/dL (1.6-3.3); Glucose 94 mg/dL (70-110); Potassium 4.1 mmol/L (3.5-5.5); Sodium 139 mmol/L (135-145); Total Bilirubin 0.4 mg/dL (0.3-1.2); Total Protein 4.2 g/dL (6.2-8.2)
--- NOTE | 2024-09-26 12:58 | P.PN ---
Subjective Progress Note Date: 09/26/24 Principal diagnosis: Reason for follow-up is colitis and leukocytosis Patient is a 69-year-old female with a past medical history negative for hypertension osteoarthritis and this patient who recently did have a left knee replacement on 09/13/2024 patient apparently mentioned that she has developed constipation postsurgery subsequent developing abdominal pain constip ation CT abdominal pelvis with evidence of nonspecific colitis. On today's evaluation that is 09/26/2024, Patient is afebrile this morning patient denies having any chest pain shortness of breath or cough, the patient is currently on room air, patient abdominal pain has improved no nausea vomiting and did have multiple bowel movements. Patient white count is 14.07 creatinine 0.7 blood and stool cultures so far pending urine is negative Objective - Vital Signs Vital signs: Vital Signs Temp 98.5 F 09/26/24 07:37 Pulse 87 09/26/24 07:37 Resp 17 09/26/24 07:37 BP 175/76 09/26/24 07:37 Pulse Ox 97 09/26/24 07:37 FiO2 Intake & Output 09/25/24 09/26/24 09/26/24 18:59 06:59 18:59 Intake Total 700 1080 Balance 700 1080 Weight 118.5 kg Intake: Intake, IV Titration 700 Amount Piperacillin-Tazobactam 3 100 .375 gm In Sodium Chloride 0.9% 100 ml @ 25 mls/hr IVPB Q8H [facility] Rx#: [id number] Sodium Chloride 0.9% 1, 600 000 ml @ 75 mls/hr IV . [id number] [facility] Rx#:[id number] Oral 1080 Other: # Voids 6 4 # Bowel Movements 4 - Exam GENERAL DESCRIPTION: An elderly female lying in bed in no distress RESPIRATORY SYSTEM: Unlabored breathing , decreased breath sounds at bases HEART: S1 S2 regular rate and rhythm , ABDOMEN: Soft , no tenderness EXTREMITIES: Left lower extremity some swelling and redness - Labs CBC & Chem 7: 09/26/24 03:44 09/26/24 03:44 Labs: Abnormal Lab Results - Last 24 Hours (Table) 09/26/24 09/26/24 Range/Units 03:44 03:44 WBC 14.07 H (4.50-10.00) X 10*3/uL RBC 3.17 L (4.10-5.20) X 10*6/uL Hgb 9.0 L (12.0-15.0) g/dL Hct 28.9 L (37.2-46.3) % MCHC 31.1 L (32.0-37.0) g/dL RDW 16.5 H (11.5-14.5) % Calcium 8.0 L (8.7-10.3) mg/dL Alkaline Phosphatase 152 H (41-126) U/L Total Protein 4.2 L (6.2-8.2) g/dL Albumin 2.6 L (3.8-4.9) g/dL Microbiology - Last 24 Hours (Table) 09/24/24 14:13 Stool Culture - Preliminary Stool 09/23/24 17:44 Blood Culture - Preliminary Blood 09/24/24 02:00 Urine Culture - Final Urine,Catheterized Assessment and Plan (1) Leukocytosis Current Visit: Yes Status: Acute Code(s): D72.829 - ELEVATED WHITE BLOOD CE LL COUNT, UNSPECIFIED SNOMED Code(s): 490159148 (2) Colitis Current Visit: Yes Status: Acute Code(s): K52.9 - NONINFECTIVE GASTROENTERITIS AND COLITIS, UNSPECIFIED SNOMED Code(s): 62026260 Plan: 1patient presenting to the hospital with abdominal pain distention nausea and vomiting in this patient has been constipated post her knee surgery did have a elevated white count with a CT abdominal pelvis done in the outside facility did not mention colitis possible diverticulitis patient is having some diarrhea now after receiving laxative clinic not behaving as C. difficile colitis, stool for C. difficile is negative 2patient do not have significant respiratory symptom chest x-ray completed yesterday did not mention any pneumonia clinically not behaving as pneumonia. 3patient white count is trending down still on the high side, patient has responded to Zosyn 3.375 g every 8 hours which will be continued while inpatient transition to oral antibiotics on discharge Dictation was produced using [employer] dictation software. please excuse any grammatical, word or spelling errors. Time with Patient: Less than 30
--- NOTE | 2024-09-26 13:03 | P.PN ---
Subjective Progress Note Date: 09/26/24 Hospital course: Patient is a very pleasant 69-year-old female with a past medical history of hypertension, GERD, stage II chronic kidney disease, restless leg syndrome, and osteoarthritis status post recent left total knee arthroplasty on 09/13/2024. She presented to our facility as a transfer from [facility] secondary to reported findings of nonspecific colitis at splenic flexure and concerns for ileus. Patient initially presented to their facility secondary to reports of abdominal pain and distention accompanied by nausea and vomiting. Upon arrival to our facility, patient underwent evaluation in the emergency department. Vital signs upon arrival to our facility show blood pressure 100/62, heart rate 89, respiratory rate 16, temp 98.5 F, and SpO2 of 95% on room air. Labs completed and reviewed. CBC showing leukocytosis with WBC count of 31.8 and hemoglobin of 10.8. BMP showing high anion gap metabolic acidosis with chloride of 100, bicarb 21, and anion gap of 16 with an acute kidney injury with BUN of 62, creatinine of 1.49, GFR of 36 with baseline creatinine of 0.79. Liver profile showing hyperbilirubinemia and transaminitis with total bili of 1.6, AST of 42, ALT of 61, and alkaline phosphatase of 268. Albumin was low at 3.0. Influenza A, influenza B, RSV, COVID, and Legionella negative. Patient admitted under services with consultation to infectious disease.Abdominal ultrasound was completed showing unremarkable right upper quadrant ultrasound examination. Physical exam: Patient seen and fully evaluated at bedside this morning. Patient reports feeling slightly better today. She continues to have mild discomfort in her ab domen but states it is improving. Patient reports she is having bowel movements that are loose and somewhat formed. She denies having any melena or hematochezia. She denies any further episodes of nausea or vomiting. Patient tolerated full liquid diet, will advance to low fiber diet and monitor how patient tolerates. Vital signs reviewed. General: Nontoxic, no distress and appears stated age. Derm: Skin warm and dry, normal coloration for ethnicity. Head: Atraumatic, normocephalic and symmetric. Eyes: EOM's intact, no lid lag, and anicteric sclera Mouth: no lip lesions, mucus membranes moist Cardiovascular: regular rate and rhythm with normal S1S2, no murmur, positive posterior tibial pulses bilaterally, and cap refill < 2 seconds. Lungs: Respirations even, regular, and unlabored on room air. Lungs CTA bilaterally, no rhonchi, no rales, no wheezing, and no accessory muscle usage. Abdominal: Soft and distended with minimal lower abdominal l tenderness reported upon palpation, no guarding, no appreciable organomegaly Ext: No gross muscle atrophy, no contractures and sensation intact. Patient with left lower extremity edema and bruising with postsurgical dressing/Leodan wrap in place to left knee. No erythema, drainage, or signs of infection noted. Neuro: Speech clear, face symmetrical and CN II-XII grossly intact with no noted focal neuro deficits Psych: Alert and oriented to person, place, time, and situation. Appropriate and pleasant affect. Assessment and Plan of Care: Sepsis due to Colitis Transaminitis and hyperbilirubinemia, improving Constipation with concerns of postoperative ileus, improving Left lower lobe atelectasis, pneumonia ruled out Acute kidney injury, resolved after IV fluid hydration High anion gap metabolic acidosis, resolved after IV fluid hydration -Infectious disease following, reviewed documentation in chart. -Continue IV antibiotics with Zosyn 3.375 g every 8 hours and Flagyl 500 mg 3 times daily.. -C. difficile was negative. -Continue MiraLAX 17 g daily and Colace 100 mg twice daily. Monitor output. -Blood culture showing no growth to date. Urine culture was negative. -Abdominal ultrasound was completed showing unremarkable right upper quadrant ultrasound examination. -Initially held lisinopril and hydrochlorothiazide secondary to BECKY and episodes of hypotension requiring transfer to ICU. Patient improving and blood pressures again elevated at 175/76 this morning. Will resume lisinopril 30 mg daily and hydrochlorothiazide 12.5 mg daily and monitor patient closely for any further episodes of hypotension. Status post recent left total knee arthroplasty -Continue symptomatic care and pain management. -Order placed for physical therapy for evaluation and to work with patient throughout hospitalization. -Fall precautions. Hypertension -Lisinopril and hydrochlorothiazide held at this time secondary to BECKY and episode of hypotension, monitor vital signs closely. Currently blood pressures running soft. Restless leg syndrome with peripheral neuropathy -Continue Neurontin 600 mg 3 times daily, Tizanidine 4 mg nightly and Mirapex 1 mg nightly. Data and imaging reviewed: -Morning labs reviewed. CBC improvement of leukocytosis with WBC count down to 14.07 and stable normocytic anemia with hemoglobin of 9.0 this morning. BMP unremarkable. Blood glucose 94. Magnesium 2.0. Liver profile showing continued improvement with total bili of 0.4, AST of 16, ALT of 21, and alkaline phosphatase of 152. -Blood culture showing no growth to date. Urine culture was negative. -Vital signs reviewed. Blood pressure 175/76, heart rate 87, respiratory rate 17, temp 98.5 F, and SpO2 of 97% on room air. CODE STATUS: Full code DVT prophylaxis: Lovenox Anticipated discharge date: Anticipate discharge tomorrow, we will continue to monitor vital signs overnight now that we have resumed antihypertensive therapy and monitoring for how well patient tolerates advancement of diet. Anticipated discharge place: Home Patient was seen independently by Nurse Pracitioner. This document was prepared using [employer] dictation software. Please allow for errors in windscreen fitter, while rare they do occur. Stefano Diana NP rendered care for this patient independently, reviewed the findings and plan as documented in the note above and agree with plan. I did not physically speak with or examine the patient on this date. Objective - Vital Signs Vital signs: Vital Signs Temp 97.7 F 09/26/24 00:34 Pulse 70 09/26/24 00:34 Resp 16 09/26/24 00:34 BP 91/53 09/26/24 00:34 Pulse Ox 95 09/26/24 00:34 FiO2 Intake & Output 09/25/24 09/26/24 09/26/24 18:59 06:59 18:59 Intake Total 700 1080 Balance 700 1080 Weight 118.5 kg Intake: Intake, IV Titration 700 Amount Piperacillin-Tazobactam 3 100 .375 gm In Sodium Chloride 0.9% 100 ml @ 25 mls/hr IVPB Q8H [facility] Rx#: [id number] Sodium Chloride 0.9% 1, 600 000 ml @ 75 mls/hr IV . [id number] [facility] Rx#:[id number] Oral 1080 Other: # Voids 6 4 # Bowel Movements 4 - Labs CBC & Chem 7: 09/26/24 03:44 09/26/24 03:44 Labs: Abnormal Lab Results - Last 24 Hours (Table) 09/25/24 09/25/24 Range/Units 09:04 09:04 WBC 17.5 H (3.8-10.6) k/uL RBC 3.42 L (3.80-5.40) m/uL Hgb 10.1 L (11.4-16.0) gm/dL Hct 32.2 L (34.0-46.0) % Sodium 136 L (137-145) mmol/L BUN 22 H (7-17) mg/dL Calcium 8.0 L (8.4-10.2) mg/dL Magnesium 2.6 H (1.6-2.3) mg/dL Alkaline Phosphatase 184 H (38-126) U/L Total Protein 4.8 L (6.3-8.2) g/dL Albumin 2.6 L (3.5-5.0) g/dL Microbiology - Last 24 Hours (Table) 09/23/24 17:44 Blood Culture - Preliminary Blood 09/24/24 02:00 Urine Culture - Final Urine,Catheterized
--- NOTE | 2024-09-26 14:21 | P.PN ---
Subjective Progress Note Date: 09/26/24 This is a 69-year-old female known history of hypertension, patient had left total knee arthroplasty about 2 weeks ago, patient was seen in the ER at [facility] complaining of abdominal pain constipation and distention. Has been on narcotics for her left knee pain/postsurgical pain, transferred to [facility] for further evaluation as her CT of the abdomen question colitis. CT also showed diffuse constipation and nonspecific colitis at the splenic flexure. Patient had ultrasound of the left lower extremity which was negative for DVT patient was admitted initially to the regular medical floor last night the patient developed low blood pressure did not improve much with the first 2 L of IV fluids given, I was notified about this patient late at night and I recommended another bolus of fluid and if no improvement patient to be started on norepinephrine. Considering the patient may have required norepinephrine patient was transferred to the ICU however did not end up requiring pressors. Her blood pressure responded well to treatment, did not require any other intervention except IV fluids. Her abdominal issues are being addressed by the admitting physician patient remains a bit constipated. No nausea no vomiting no fever no chills WBC count is 19.6 hemoglobin 8.8 electrolytes are normal BUN is 40 creatinine 1.3 initial creatinine on admission was 1.49 creatinine improved significantly with fluids considering her abdominal symptoms, patient was placed on antibiotics in the form of Zosyn. Vitals this morning showed blood pressure of 135/83 her O2 sat showed 95% on room air, patient has no active pulmonary symptoms no cough no wheezing no shortness of breath and no chest pain. The patient is seen today September 25, 2024 in follow-up on the regular medical floor. She is sitting up in a chair at the bedside. Awake and alert in no acute distress. Maintaining O2 saturations in the 90s on room air. She is afebrile. Hemodynamically stable. She has normal saline at 50 mL/h. Blood culture revealing no growth. Urine culture revealed no growth. White count 17.5. Hemoglobin 10.1. Platelets 273. Sodium 136. Potassium 4.3. Bicarb 25. BUN 22. Creatinine 0.76. Glucose 97. C. difficile screen was negative. Remains on antibiotics in the form of Zosyn. The patient is seen today September 26, 2024 in follow-up on the regular medical floor. She is currently sitting up in a chair at the bedside. Awake and alert in no acute distress. Maintaining O2 saturation in the 90s on room air. Blood urine and stool cultures revealed no growth. White count 14.0. Hemoglobin 9.0. Platelets 279. Sodium 139. Potassium 4.1. Bicarb 22. BUN 13. Creatinine 0.7. Glucose 94. She is on Lovenox for DVT prophylaxis. Remains on Zosyn and Flagyl. Objective - Vital Signs Vital signs: Vital Signs Temp 98.5 F 09/26/24 07:37 Pulse 87 09/26/24 07:37 Resp 17 09/26/24 07:37 BP 175/76 09/26/24 07:37 Pulse Ox 97 09/26/24 07:37 FiO2 Intake & Output 09/25/24 09/26/24 09/26/24 18:59 06:59 18:59 Intake Total 700 1080 Balance 700 1080 Weight 118.5 kg Intake: Intake, IV Titration 700 Amount Piperacillin-Tazobactam 3 100 .375 gm In Sodium Chloride 0.9% 100 ml @ 25 mls/hr IVPB Q8H [facility] Rx#: [id number] Sodium Chloride 0.9% 1, 600 000 ml @ 75 mls/hr IV . [id number] [facility] Rx#:[id number] Oral 1080 Other: # Voids 6 4 # Bowel Movements 4 - Exam GENERAL EXAM: Alert, pleasant 69-year-old female, on room air, in no apparent distress. HEAD: Normocephalic. EYES: Normal reaction of pupils, equal size. NOSE: Clear with pink turbinates. THROAT: No erythema or exudates. NECK: No masses, no JVD. CHEST: No chest wall deformity. LUNGS: Equal air entry with no crackles, wheeze, rhonchi or dullness. CVS: S1 and S2 normal with no audible murmur, regular rhythm. ABDOMEN: No hepatosplenomegaly, normal bowel sounds, no guarding or rigidity. SPINE: No scoliosis or deformity SKIN: No rashes CENTRAL NERVOUS SYSTEM: No focal deficits, tone is normal in all 4 extremities. EXTREMITIES: There is no peripheral edema. No clubbing, no cyanosis. Peripheral pulses are intact. - Labs CBC & Chem 7: 09/26/24 03:44 09/26/24 03:44 Labs: Abnormal Lab Results - Last 24 Hours (Table) 09/26/24 09/26/24 Range/Units 03:44 03:44 WBC 14.07 H (4.50-10.00) X 10*3/uL RBC 3.17 L (4.10-5.20) X 10*6/uL Hgb 9.0 L (12.0-15.0) g/dL Hct 28.9 L (37.2-46.3) % MCHC 31.1 L (32.0-37.0) g/dL RDW 16.5 H (11.5-14.5) % Calcium 8.0 L (8.7-10.3) mg/dL Alkaline Phosphatase 152 H (41-126) U/L Total Protein 4.2 L (6.2-8.2) g/dL Albumin 2.6 L (3.8-4.9) g/dL Microbiology - Last 24 Hours (Table) 09/24/24 14:13 Stool Culture - Preliminary Stool 09/23/24 17:44 Blood Culture - Preliminary Blood 09/24/24 02:00 Urine Culture - Final Urine,Catheterized Assessment and Plan Assessment: Hypovolemic hypotension, responded well to fluid boluses, did not require any pressors Constipation secondary to pain medications given for postsurgical pain Recent left total knee arthroplasty Left lower lobe atelectasis, no evidence of pneumonia, patient has no active pulmonary symptoms whatsoever Questionable colitis, being addressed by internal medicine and infectious disease on the case, placed on Zosyn she was initially on Flagyl Plan: The patient was seen and evaluated Labs and medications reviewed Stable and on room air Blood pressure stable Lovenox for DVT prophylaxis She remains on Zosyn and Flagyl Lovenox for DVT prophylaxis Increase her activity as tolerated I have personally seen and examined the patient, performed the documentation and the assessment and plan as written. Number of minutes spent on the visit: 10 Dictation was produced using [employer] software. Please excuse any grammatical, word or spelling errors.
[2024-09-26] MEDS: lisinopriL 10 MG TAB PO SCH (14:57)
--- NOTE | 2024-09-27 07:59 | P.PN ---
Subjective Progress Note Date: 09/27/24 09/25/2024 Dr. Diaz: The patient is a very pleasant 69-year-old female who is well-known to me. The patient underwent an uncomplicated left total knee replacement at the end of August. She was doing relatively well in regards to her knee replacement. Unfortunately she developed abdominal distention and pain. She was initially seen at an outside facility and then transferred here. Orthopedics was consulted due to her being a recent postoperative patient. This morning she is complaining of mild pain in her left knee. 09/26/2024 progress: No acute events overnight per patient. Patient states they are doing well this morning. Patient states that their abdominal pain and her left knee pain are improved compared to yesterday. Patient states their left knee pain has been controlled with oral pain medication. 09/27/2024 progress: No acute overnight per patient. Patient states they are doing well this morning. Patient states that she started eating yesterday and has had a bowel movement. Patient states that her left knee pain has been controlled with oral pain medication. Patient was eating breakfast at time of exam today. Objective - Vital Signs Vital signs: Vital Signs Temp 97.4 F L 09/27/24 02:24 Pulse 80 09/27/24 02:24 Resp 14 09/27/24 02:24 BP 91/62 09/27/24 02:24 Pulse Ox 94 L 09/27/24 02:24 FiO2 Intake & Output 09/26/24 09/27/24 09/27/24 18:59 06:59 18:59 Intake Total 100 Balance 100 Weight 63.6 kg Intake: Intake, IV Titration 100 Amount Piperacillin-Tazobactam 3 100 .375 gm In Sodium Chloride 0.9% 100 ml @ 25 mls/hr IVPB Q8H [facility] Rx#: [id number] Other: # Voids 1 # Bowel Movements 3 - Exam The patient is resting comfortably in a chair eating breakfast. She is alert and able to answer questions. A focused exam of the left lower extremity was conducted. On inspection she has moderate swelling throughout the lower leg. She has mild chronic cellulitis. There is a surgical dressing over the left knee, it is clean, dry, intact, no surrounding erythema or drainage. Her operative femoral nerve function is grossly intact. The thigh and calf are soft and compressible. She can actively plantarflex and dorsiflex her ankle and her toes. - Labs CBC & Chem 7: 09/26/24 03:44 09/26/24 03:44 Labs: Abnormal Lab Results - Last 24 Hours (Table) 09/26/24 09/26/24 Range/Units 03:44 03:44 WBC 14.07 H (4.50-10.00) X 10*3/uL RBC 3.17 L (4.10-5.20) X 10*6/uL Hgb 9.0 L (12.0-15.0) g/dL Hct 28.9 L (37.2-46.3) % MCHC 31.1 L (32.0-37.0) g/dL RDW 16.5 H (11.5-14.5) % Calcium 8.0 L (8.7-10.3) mg/dL Alkaline Phosphatase 152 H (41-126) U/L Total Protein 4.2 L (6.2-8.2) g/dL Albumin 2.6 L (3.8-4.9) g/dL Microbiology - Last 24 Hours (Table) 09/23/24 17:44 Blood Culture - Preliminary Blood 09/24/24 14:13 Stool Culture - Preliminary Stool Assessment and Plan Assessment: status post left total knee replacement 09/13/2024 for severe left knee osteoarthritis Possible postoperative ileus Multiple medical problems Plan: The patient is doing relatively well in regards to her left total knee a rthroplasty. Leave surgical dressing in place. Weight-bear as tolerated with assistive device as needed. Work with physical therapy. Will defer anticoagulation to internal medicine at this time. We appreciate internal medicine and all medical consultants management of her postoperative GI issues. Will continue to follow. She is okay to discharge from an orthopedic standpoint when cleared by medicine. Would like to have outpatient follow-up 1 week after discharge.
[2024-09-27 08:58] LABS: MCH 28.6 pg (27.0-32.0); MCV 92.1 FL (80.0-97.0); Mean Platelet Volume 11.2 FL (9.5-12.2); NRBC Per 100 WBC 0 X 10*3/uL (0.00-0.01); Platelet Count 313 X 10*3/uL (140-440); RBC 3.15 X 10*6/uL (4.10-5.20); RDW 16.4 % (11.5-14.5); WBC 13.11 X 10*3/uL (4.50-10.00)
[2024-09-27] MEDS ORDERED: hydroCHLOROthiazide 12.5 MG CAP PO SCH (09:00)
[2024-09-27 09:41] VITALS: BP 129/83; PULSE 75; RESP 16; TEMP 98.7
[2024-09-27 09:54] LABS: ALT 20 U/L (8-44); AST 16 U/L (13-35); Albumin 2.7 g/dL (3.8-4.9); Alkaline Phosphatase 136 U/L (41-126); BUN/Creat Ratio 11.12 Ratio (12.00-20.00); Blood Urea Nitrogen 8.9 mg/dL (9.0-27.0); Calcium 8.1 mg/dL (8.7-10.3); Carbon Dioxide 21.6 mmol/L (21.6-31.8); Chloride 106 mmol/L (96-109); Globulin 1.5 g/dL (1.6-3.3); Glucose 110 mg/dL (70-110); Magnesium 1.6 mg/dL (1.5-2.4); Potassium 3.9 mmol/L (3.5-5.5); Sodium 139 mmol/L (135-145); Total Bilirubin 0.4 mg/dL (0.3-1.2); Total Protein 4.2 g/dL (6.2-8.2)
--- NOTE | 2024-09-27 10:00 | P.DS ---
Providers Date of admission: 09/22/24 23:23 Expected date of discharge: 09/27/24 Attending physician: Shay Rm MD Consults: 09/23/24 16:44 Consult Physician Routine Consulting Provider: Linda Marcano Consult Reason/Comments: severe leukocytosis with pneumonia and colitis Do you want consulting provider notified?: Yes 09/24/24 02:30 Consult Physician Routine Consulting Provider: Nguyễn Chamberlain Consult Reason/Comments: ICU management Do you want consulting provider notified?: Already Contacted 09/24/24 09:23 Consult Physician Routine Consulting Provider: Levy Diaz Consult Reason/Comments: Post op knee edema Do you want consulting provider notified?: Yes Primary care physician: Janee Kohler MD Hospital Course: Discharge Diagnosis: Sepsis due to Colitis. Patient received IV antibiotics with Zosyn and Flagyl. Condition significantly improved. She has been cleared by infectious disease to be discharged home on Ceftin 500 mg twice daily x 10 days and Flagyl 500 mg 3 times daily x 10 days. Patient to follow-up outpatient with PCP in 1 to 2 days. Patient also encouraged to take probiotic with the antibiotics. Transaminitis and hyperbilirubinemia, improving Constipation with concerns of postoperative ileus, improved Left lower lobe atelectasis, pneumonia ruled out Acute kidney injury, resolved after IV fluid hydration High anion gap metabolic acidosis, resolved after IV fluid hydration Status post recent left total knee arthroplasty Hypertension Restless leg syndrome with peripheral neuropathy. Continue Neurontin 600 mg 3 times daily, Tizanidine 4 mg nightly and Mirapex 1 mg nightly. Hospital course: Patient is a very pleasant 69-year-old female with a past medical history of hypertension, GERD, stage II chronic kidney disease, restless leg syndrome, and osteoarthritis status post recent left total knee arthroplasty on 09/13/2024. She presented to our facility as a transfer from [facility] secondary to reported findings of nonspecific colitis at splenic flexure and concerns for ileus. Patient initially presented to their facility secondary to reports of abdominal pain and distention accompanied by nausea and vomiting. Upon arrival to our facility, patient underwent evaluation in the emergency department. Vital signs upon arrival to our facility show blood pressure 100/62, heart rate 89, respiratory rate 16, temp 98.5 F, and SpO2 of 95% on room air. Labs completed and reviewed. CBC showing leukocytosis with WBC count of 31.8 and hemoglobin of 10.8. BMP showing high anion gap metabolic acidosis with chloride of 100, bicarb 21, and anion gap of 16 with an acute kidney injury with BUN of 62, creatinine of 1.49, GFR of 36 with baseline creatinine of 0.79. Liver profile showing hyperbilirubinemia and transaminitis with total bili of 1.6, AST of 42, ALT of 61, and alkaline phosphatase of 268. Albumin was low at 3.0. Influenza A, influenza B, RSV, COVID, and Legionella negative. Patient admitted under services with consultation to infectious disease.Abdominal ultrasound was completed showing unremarkable right upper quadrant ultrasound examination. Initially held lisinopril and hydrochlorothiazide secondary to BECKY and episodes of hypotension requiring transfer to ICU. Patient improving and blood pressures again elevated at 175/76 this morning. Resumed lisinopril 30 mg daily and closely monitored vital signs over the next 24 hours. Had full resolution of abdominal pain/distention and reports feeling much better and ready to go home. She states she is still having some episodes of loose stools but significantly improved. Patient tolerating resumption of antihypertensive with lisinopril. Will continue to hold hydrochlorothiazide at this time. Patient instructed she may need to resume this medication once diarrhea fully subsides. Patient encouraged to complete full antibiotic course as prescribed with Ceftin 500 mg twice daily and Flagyl 500 mg 3 times daily as recommended by infectious disease physician x 10 days. Patient to follow-up outpatient with PCP in 1 to 2 days and with orthopedic surgery as previously scheduled. Patient instructed she will need to monitor her blood pressure twice daily at home and document findings and daily log to bring with her to her next doctor's appointment with her PCP. Physical exam: Vital signs reviewed. General: Nontoxic, no distress and appears stated age. Derm: Skin warm and dry, normal coloration for ethnicity. Head: Atraumatic, normocephalic and symmetric. Eyes: EOM's intact, no lid lag, and anicteric sclera Mouth: no lip lesions, mucus membranes moist Cardiovascular: regular rate and rhythm with normal S1S2, no murmur, positive posterior tibial pulses bilaterally, and cap refill < 2 seconds. Lungs: Respirations even, regular, and unlabored on room air. Lungs CTA bilaterally, no rhonchi, no rales, no wheezing, and no accessory muscle usage. Abdominal: Soft and distended with minimal lower abdominal l tenderness reported upon palpation, no guarding, no appreciable organomegaly Ext: No gross muscle atrophy, no contractures and sensation intact. Patient with left lower extremity edema and bruising with postsurgical dressing/Leodan wrap in place to left knee. No erythema, drainage, or signs of infection noted. Neuro: Speech clear, face symmetrical and CN II-XII grossly intact with no noted focal neuro deficits Psych: Alert and oriented to person, place, time, and situation. Appropriate and pleasant affect. A total of 34 minutes of time were spent preparing this complex discharge summary. Pt was discharged on 09/27/2024 at 9:58 AM. Patient was seen independently by Nurse Practitioner. This document was prepared using [employer] dictation software. Please allow for errors in fire control technician g while rare they do occur. Stefano Diana NP rendered care for this patient independently, reviewed the findings and plan as documented in the note above. I did not physically speak with or examine the patient on this date. Patient Condition at Discharge: Stable Plan - Discharge Summary Discharge Rx Participant: Yes New Discharge Prescriptions: New metroNIDAZOLE [Flagyl] 500 mg PO TID 10 Days #30 tab L.acidoph,Paracasei, B.lactis [Probiotic] 1 each PO DAILY 20 Days #20 capsule cefuroxime axetiL [Ceftin] 500 mg PO BID 10 Days #20 tab polyethylene glycoL 3350 [Miralax] 17 gm PO HS 30 Days #30 packet Continue Magnesium(Unknown Dose) 1 tab PO HS tiZANidine [Zanaflex] 4 mg PO HS Potassium(Unknown Dose) 1 tab PO DAILY Docusate [Colace] 100 mg PO BID #60 capsule Diclofenac Sodium [Voltaren] 75 mg PO BID #60 tab Ondansetron [Zofran] 4 mg PO Q8HR PRN #20 tab PRN Reason: Nausea Vit C/E/Zn/Coppr/Lutein/Zeaxan [Preservision Areds 2 Softgel] 1 cap PO BID Pramipexole [Mirapex] 1 mg PO HS lisinopriL [Zestril] 30 mg PO DAILY Meloxicam [Mobic] 15 mg PO DAILY Gabapentin 600 mg PO TID Amitriptyline HCl [Elavil] 25 mg PO HS Aspirin 81 mg PO BID #60 tab HYDROcodone/APAP 5-325MG [[place] 5-325] 1 - 2 tab PO Q6HR PRN #56 tab PRN Reason: Pain Omeprazole 40 mg PO DAILY #30 cap Discontinued Doxycycline Monohydrate 100 mg PO BID #30 cap hydroCHLOROthiazide [Hydrodiuril] 12.5 mg PO DAILY Discharge Medication List Amitriptyline HCl [Elavil] 25 mg PO HS 09/11/24 [History] Gabapentin 600 mg PO TID 09/11/24 [History] Magnesium(Unknown Dose) 1 tab PO HS 09/11/24 [History] Meloxicam [Mobic] 15 mg PO DAILY 09/11/24 [History] Potassium(Unknown Dose) 1 tab PO DAILY 09/11/24 [History] lisinopriL [Zestril] 30 mg PO DAILY 09/11/24 [History] tiZANidine [Zanaflex] 4 mg PO HS 09/11/24 [History] Aspirin 81 mg PO BID #60 tab 09/14/24 [Rx] Diclofenac Sodium [Voltaren] 75 mg PO BID #60 tab 09/14/24 [Rx] Docusate [Colace] 100 mg PO BID #60 capsule 09/14/24 [Rx] HYDROcodone/APAP 5-325MG [[place] 5-325] 1 - 2 tab PO Q6HR PRN #56 tab 09/14/24 [Rx] Omeprazole 40 mg PO DAILY #30 cap 09/14/24 [Rx] Ondansetron [Zofran] 4 mg PO Q8HR PRN #20 tab 09/14/24 [Rx] Pramipexole [Mirapex] 1 mg PO HS 09/23/24 [History] Vit C/E/Zn/Coppr/Lutein/Zeaxan [Preservision Areds 2 Softgel] 1 cap PO BID 09/23/24 [History] L.acidoph,Paracasei, B.lactis [Probiotic] 1 each PO DAILY 20 Days #20 capsule 09/27/24 [Rx] cefuroxime axetiL [Ceftin] 500 mg PO BID 10 Days #20 tab 09/27/24 [Rx] metroNIDAZOLE [Flagyl] 500 mg PO TID 10 Days #30 tab 09/27/24 [Rx] polyethylene glycoL 3350 [Miralax] 17 gm PO HS 30 Days #30 packet 09/27/24 [Rx] Follow up Appointment(s)/Referral(s): Janee Kohler MD [Primary Care Provider] - 1-2 days (office busy at time of discharge. Please call to schedule appointment ) Levy Diaz MD [Medical Doctor] - 09/28/24 1:00 pm (with [facility]) Patient Instructions/Handouts: Colitis (ED) Activity/Diet/Wound Care/Special Instructions: 1. Weight-bear as tolerated on your operative extremity unless instructed otherwise. Use a walker or other assistive device to ambulate. 2. Leave surgical dressing in place. If your dressing becomes saturated with blood, there is drainage, or the dressing becomes loose please contact the office. 3. It is okay to shower with your surgical dressing, but do not submerge in water (no hot tubs, bath's, swimming etc.) 4. Take your blood clot prevention medication as prescribed (aspirin, Eliquis, Xarelto, and Plavix are commonly prescribed medications for blood clot preve ntion) 5. While taking [place] or Percocet for pain take a stool softener (Ex: Colace) and drink lots of water. 6. Keep all follow-up appointments as scheduled. You will usually be seen in 1-2 weeks following surgery. 7. Please contact the office with any questions or concerns [phone] Activity: As tolerated. Take breaks as needed. Diet: Heart healthy and carb consistent diet. Avoid salts, or foods with hidden salts such as canned or boxed foods and frozen dinners. Extra salt makes your heart work harder and traps the fluid in your body for longer. Special Instructions: Take all of your medications as directed and remember to keep all of your doctor's appointments and follow-up as needed. Hydralazine is discontinued at this time, may need to resume at a later time if your blood pressures increase. Please monitor your blood pressure closely twice daily at home and document these findings and a daily log to bring with you to your follow-up appointment with your PCP. Thank you for allowing us to participate in your care, it was truly a pleasure having you for our patient!!! Discharge Disposition: HOME SELF-CARE
--- NOTE | 2024-09-27 12:34 | P.PN ---
Subjective Progress Note Date: 09/27/24 Principal diagnosis: Reason for follow-up is colitis and leukocytosis Patient is a 69-year-old female with a past medical history negative for hypertension osteoarthritis and this patient who recently did have a left knee replacement on 09/13/2024 patient apparently mentioned that she has developed constipation postsurgery subsequent developing abdominal pain constip ation CT abdominal pelvis with evidence of nonspecific colitis. On today's evaluation that is 09/27/2024,the patient denies any fever or any chills, patient is breathing comfortably on room air, the patient denies chest pain shortness of breath and no significant cough, patient denies abdominal jacinta n, no nausea vomiting better wants to go home. Patient white count is down to 13.91 creatinine 0.4 blood urine culture have been negative for text Objective - Vital Signs Vital signs: Vital Signs Temp 98.7 F 09/27/24 07:19 Pulse 75 09/27/24 07:19 Resp 16 09/27/24 07:19 BP 129/83 09/27/24 07:19 Pulse Ox 96 09/27/24 07:19 FiO2 Intake & Output 09/26/24 09/27/24 09/27/24 18:59 06:59 18:59 Intake Total 100 Balance 100 Weight 63.6 kg Intake: Intake, IV Titration 100 Amount Piperacillin-Tazobactam 3 100 .375 gm In Sodium Chloride 0.9% 100 ml @ 25 mls/hr IVPB Q8H [facility] Rx#: [id number] Other: # Voids 3 # Bowel Movements 3 - Exam GENERAL DESCRIPTION: An elderly female lying in bed in no distress RESPIRATORY SYSTEM: Unlabored breathing , decreased breath sounds at bases HEART: S1 S2 regular rate and rhythm , ABDOMEN: Soft , no tenderness EXTREMITIES: Left lower extremity some swelling and redness - Labs CBC & Chem 7: 09/27/24 03:28 09/27/24 03:28 Labs: Abnormal Lab Results - Last 24 Hours (Table) 09/27/24 09/27/24 Range/Units 03:28 03:28 WBC 13.11 H (4.50-10.00) X 10*3/uL RBC 3.15 L (4.10-5.20) X 10*6/uL Hgb 9.0 L (12.0-15.0) g/dL Hct 29.0 L (37.2-46.3) % MCHC 31.0 L (32.0-37.0) g/dL RDW 16.4 H (11.5-14.5) % BUN 8.9 L (9.0-27.0) mg/dL BUN/Creatinine Ratio 11.12 L (12.00-20.00) Ratio Calcium 8.1 L (8.7-10.3) mg/dL Alkaline Phosphatase 136 H (41-126) U/L Total Protein 4.2 L (6.2-8.2) g/dL Albumin 2.7 L (3.8-4.9) g/dL Globulin 1.5 L (1.6-3.3) g/dL Microbiology - Last 24 Hours (Table) 09/24/24 14:13 Stool Culture - Preliminary Stool 09/23/24 17:44 Blood Culture - Preliminary Blood Assessment and Plan (1) Leukocytosis Status: Acute Code(s): D72.829 - ELEVATED WHITE BLOOD CELL COUNT, UNSPECIFIED SNOMED Code(s): 488210668 (2) Colitis Status: Acute Code(s): K52.9 - NONINFECTIVE GASTROENTERITIS AND COLITIS, UNSPECIFIED SNOMED Code(s): 91180926 Plan: 1patient presenting to the hospital with abdominal pain distention nausea and vomiting in this patient has been constipated post her knee surgery did have a elevated white count with a CT abdominal pelvis done in the outside facility did not mention colitis possible diverticulitis patient is having some diarrhea now after receiving laxative clinic not behaving as C. difficile colitis, stool for C. difficile is negative 2patient do not have significant respiratory symptom chest x-ray completed yesterday did not mention any pneumonia clinically not behaving as pneumonia. 3patient is afebrile white count is trending down to 13,000 patient has been feeling better and has been insisting on going home antibiotics for discharge discussed with RETURNING OFFICER for admitting team attending course of oral Ceftin and Flagyl and a close outpatient follow-up Dictation was produced using [employer] dictation software. please excuse any grammatical, word or spelling errors. Time with Patient: Less than 30
--- NOTE | 2024-10-02 16:06 | CDI ---
Documentation Clarification Form Date: 10/02/2024 03:49:05 PM From: Yuliya Urbina Phone: Admit Date: 09/22/2024 11:23:00 PM Patient Name: Usha John Visit Number: [id number] Discharge Date: 09/27/2024 11:32:00 AM ATTENTION: The Clinical Documentation Specialists (CDI) and [facility] Coding Staff appreciate your assistance in clarifying documentation. Please respond to the clarification below the line at the bottom and electronically sign. The CDI & [facility] Coding staff will review the response and follow-up if needed. Please note: Queries are made part of the Legal Health Record. If you have any questions, please contact the author of this message via ITS. Doctor/Provider: Papo Valentina Morrisseykristie Sepsis is documented per DC Summary which may lack sufficient clinical evidence/support in the medical record. Additional clarification is requested. History/Risk Factors: 69yo F, colitis, PO ileus, transaminitis,hyperbilirubinemia, opiate induced constipation, BECKY, HAGMA, recent TKA, HTN, RLS w peripheral neuropathy Clinical Indicators: WBC: 09/23 33.38 09/25 17.5 09/26 14.07 09/27 13.11 Vitals: 09/22 22:25 23:57 02:02 T 98.5 F FL 89 83 85 RR 16 17 18 BP100/62 105/58 100/73 O2 Sat 95 97 98 09/22/2423:57 83 17 105/58 97 09/22/2422:25 98.5 F 89 16 100/62 95 09/23 02:17 T 98.2 F Treatment: Patient receivedIV antibioticswith Zosyn and Flagyl. Condition significantly improved. She has been cleared byinfectious diseaseto be discharged home on Ceftin 500 mg twice daily x 10 days and Flagyl 500 mg 3 times daily x 10 days. Patient tofollow-upoutpatient with PCP in 1 to 2 days. Patient also encouraged to take probiotic with the antibiotics. After work up and study, please clarify which diagnosis is most appropriate? [ x] Sepsis ruled out [ ] Sepsis treated prophylactically [ ] Sepsis is a valid diagnosis as evidence by the following: (Please add rationale): [ ] Other, please specify [ ] Unable to determine (Template Last Reviewed: October 2023) MTDD
== END 2024-09-27 11:32 | disposition home or self-care (01) | DRG 394 ==
LOC: EC 22:23 → 5NMEDONC 23:23 → 2SICU 09-24 02:37 → 4SSUR 09-24 12:16
PROVIDERS: ADMIT Internal Medicine; ATTEND Internal Medicine
DX: K91.89 Other postprocedural complications and disorders of digestive system (principal); E87.20 Acidosis, unspecified; N17.9 Acute kidney failure, unspecified; K56.7 Ileus, unspecified; L76.32 Postprocedural hematoma of skin and subcutaneous tissue following other procedure; K59.03 Drug induced constipation; D63.1 Anemia in chronic kidney disease; E83.41 Hypermagnesemia; G62.89 Other specified polyneuropathies; F32.A Depression, unspecified; G25.81 Restless legs syndrome; I12.9 Hypertensive chronic kidney disease with stage 1 through stage 4 chronic kidney disease, or unspecified chronic kidney disease; K52.9 Noninfective gastroenteritis and colitis, unspecified; H54.61 Unqualified visual loss, right eye, normal vision left eye; I95.89 Other hypotension; F17.290 Nicotine dependence, other tobacco product, uncomplicated; E80.6 Other disorders of bilirubin metabolism; T40.605A Adverse effect of unspecified narcotics, initial encounter; N18.2 Chronic kidney disease, stage 2 (mild); E86.1 Hypovolemia; F41.9 Anxiety disorder, unspecified; R60.0 Localized edema; R74.01 Elevation of levels of liver transaminase levels; Z96.652 Presence of left artificial knee joint; Z79.82 Long term (current) use of aspirin; Z79.899 Other long term (current) drug therapy; Z52.3 Bone marrow donor; Z79.1 Long term (current) use of non-steroidal anti-inflammatories (NSAID)
CPT/HCPCS: 71045; 76705; 80048; 80053; 82248; 83605; 83735; 84145; 84484; 85025; 85027; 87040; 87045; 87046; 87086; 87324; 87449; 87636; 93970; 99285

== ENCOUNTER → 2024-10-02 | Outpatient (CLI) | payer MEDICARE ==
--- NOTE | 2024-10-02 13:28 | US ---
EXAMINATION TYPE: US venous doppler duplex LE LT DATE OF EXAM: 10/02/2024 1:13 PM COMPARISON: US 8 days prior CLINICAL INDICATION: Female, 69 years old with history of Z47.1 M25.562 PAIN IN LEFT LEG; Left leg pa in, left knee replacement 3 weeks ago, Pain TECHNIQUE: The lower extremity deep venous system is examined utilizing real time linear array sonog brittni with graded compression, color doppler sonography, and spectral doppler. SIDE PERFORMED: Left FINDINGS: VESSELS IMAGED: Common Femoral Vein Deep Femoral Vein Greater Saphenous Vein * Femoral Vein Popliteal Vein Small Saphenous Vein * Proximal Calf Veins (* superficial vessels) Left Leg: Appears negative for DVT, patient unable to tolerate compression at distal femoral vein IMPRESSION: No ultrasound evidence for deep venous thrombosis. [facility], , 10/02/2024 1:25 PM
== END | disposition home or self-care (01) ==
LOC: RADUSWWP 12:46
PROVIDERS: ATTEND Orthopaedic Surgery
DX: M25.562 Pain in left knee (principal); Z47.1 Aftercare following joint replacement surgery